=== PATIENT | female | born 1955 | race Caucasian/White ===

== ENCOUNTER 2017-07-26 10:54 | Inpatient (IN) | payer BC, OTHER ==
[2017-07-26 11:02] VITALS: BMI 24.4
[2017-07-26] MEDS ORDERED: Sodium Chloride 0.9% 1,000 ML IV STA ×2 (11:17→12:31)
--- NOTE | 2017-07-26 11:39 | ED PDOC ---
HPI: Abdomen Time Seen by Provider: 07/26/17 11:03 Chief Complaint (Nursing): Abdominal Pain Chief Complaint (Provider): Abdominal Pain History Per: Patient History/Exam Limitations: no limitations Onset/Duration Of Symptoms: Days (x2 weeks) Current Symptoms Are (Timing): Still Present Additional Complaint(s): 61 y/o female presents to the emergency department with a right upper quadrant abdominal pain and shortness of breath x2 weeks. Reports pain worsens with deep breathing and exertion. Patient visited the urgent care who advised her to come to the emergency department because she had a fast heart rate and elevated blood pressure. Also reports minimal non productive cough. Admits she quit smoking 6 weeks ago and had recent travel from [place] back and forth. Denies leg pain, calf pain, or swelling. Past Medical History Reviewed: Historical Data, Nursing Documentation, Vital Signs Vital Signs: Last Vital Signs Temp 97.6 F 07/28/17 01:00 Pulse 105 H 07/28/17 01:00 Resp 17 07/28/17 01:00 BP 100/68 07/28/17 01:00 Pulse Ox 97 07/28/17 01:00 - Medical History PMH: No Chronic Diseases - Surgical History Surgical History: No Surg Hx - Family History Family History: States: Unknown Family Hx - Home Medications Home Medications: Ambulatory Orders Medication Instructions Recorded Clindamycin [Cleocin] 300 mg PO TID 07/26/17 Cyclobenzaprine HCl 5 mg PO HS 07/26/17 [Cyclobenzaprine HCl] Naproxen [Naprosyn] 500 mg PO DAILY PRN 07/26/17 - Allergies Allergies/Adverse Reactions: Allergies Allergy/AdvReac Type Severity Reaction Status Date / Time No Known Allergies Allergy Verified 07/26/17 11:03 Review of Systems ROS Statement: Except As Marked, All Systems Reviewed And Found Negative Respiratory: Positive for: Cough (Non-productive), Shortness of Breath Gastrointestinal: Positive for: Abdominal Pain Musculoskeletal: Negative for: Leg Pain (or calf pain) Physical Exam - Reviewed Nursing Documentation Reviewed: Yes Vital Signs Reviewed: Yes - Physical Exam Appears: Positive for: Non-toxic, No Acute Distress Head Exam: Positive for: ATRAUMATIC, NORMAL INSPECTION, NORMOCEPHALIC Skin: Positive for: Normal Color, Warm, Dry Cardiovascular/Chest: Positive for: Chest Non Tender, Tachycardia (with regular rhythm). Negative for: Murmur Respiratory: Positive for: Normal Breath Sounds. Negative for: Accessory Muscle Use, Respiratory Distress Gastrointestinal/Abdominal: Positive for: Soft, Tenderness (RUQ region). Negative for: Normal Exam, Guarding, Rebound Extremity: Positive for: Normal ROM. Negative for: Pedal Edema, Calf Tenderness , Swelling Neurologic/Psych: Positive for: Alert, Oriented (x3) - Laboratory Results Result Diagrams: 07/27/17 06:00 07/27/17 15:00 - ECG O2 Sat by Pulse Oximetry: 99 (RA) Pulse Ox Interpretation: Normal Medical Decision Making Medical Decision Making: Time: 11:15 Initial Impression: Pneumonia, pulmonary embolism, cholecystitis and cholelithiasis Initial Plan: --VBG Shock Panel --EKG --ProBNP --CMP --Lipase --Troponin I --Urine DIP --CBC w/ diff --D Dimer --PTT & Prothrombin --Chest x-ray --Sodium Chloride 1L --Blood culture --Urinalysis --Abdomen Limited US --Reevaluation Time: 11:49 --Chest x-ray FINDINGS: LUNGS: No active pulmonary disease. PLEURA: No significant pleural effusion identified, no pneumothorax apparent. CARDIOVASCULAR: Normal. OSSEOUS STRUCTURES: No significant abnormalities. VISUALIZED UPPER ABDOMEN: Normal. OTHER FINDINGS: None. IMPRESSION: No active disease. Time: 12:46 --Angio Chest CT Time: 13:11 --Abdomen US FINDINGS: LIVER: Measures 21.7 cm in length. Heterogeneously increased echogenicity. This may reflect fatty infiltration or hepatocellular disease. The contour is lobulated. This raises the possibility of hepatic cirrhosis. There is no mass. There is no biliary dilatation. GALLBLADDER: Gallbladder is partially collapsed. There are no gallstones identified. There are multiple tiny polyps on both the dependent and anti dependent wall. Possible tumefactive sludge versus polyp measuring 8 mm in the gallbladder neck. . There is mild mural thickening of the gallbladder up to 5 mm but this is likely artifact resulting from the contracted status. No pericholecystic fluid. No sonographic Webster sign. COMMON BILE DUCT: Measures 3 mm. No stones. No dilatation. PANCREAS: Unremarkable as visualized. No mass. No ductal dilatation. RIGHT KIDNEY: Measures 10.4 cm in length. Normal echogenicity. No calculus, mass, or hydronephrosis. AORTA: No aneurysmal dilatation. IVC: Unremarkable. OTHER FINDINGS: None . IMPRESSION: Enlarged heterogeneous liver with the lobulated/nodular contour. Possible hepatic cirrhosis. No biliary dilatation. Gallbladder significant for mild mural thickening likely related to partially contracted status. Multiple small gallbladder polyps but no evidence of cholelithiasis. Low suspicion of cholecystitis. Time: 1356 --Angio Chest CT FINDINGS: PULMONARY ARTERIES: Unremarkable. No pulmonary embolism. AORTA: No acute findings. No thoracic aortic aneurysm. LUNGS: There is a masslike consolidation in the right upper lobe, pleural, measuring approximately 2.7 x 2.9 by 2.7 cm. Its margins are spiculated. This is suspicious for pulmonary neoplasm. There is no other pulmonary mass identified. There is centrilobular pulmonary emphysema. There is small focal patchy opacity in the left apex. This is nonspecific. PLEURAL SPACES: Trace right pleural effusion. No left pleural effusion. No pneumothorax. HEART: Unremarkable. No cardiomegaly. No significant pericardial effusion. LYMPH NODES: Mild right hilar lymphadenopathy. No mediastinal lymphadenopathy or left hilar lymphadenopathy. BONES, CHEST WALL: There are lytic lesions seen in the T10 and T12 vertebral bodies suspicious for metastasis. No other lytic or blastic osseous lesions are identified. OTHER FINDINGS: UnremarkableSections through the upper abdomen demonstrate an irregular lobulated low-density mass in the right lobe of the liver measuring approximately 2.4 cm in greatest dimension. . There is ill-defined confluent low -attenuation in much of the left hepatic lobe. This is nonspecific but the possibility of a neoplastic disorder must be considered. This could represent a hepatic cellular neoplasm. In the lateral segment of the left hepatic lobe there is a 1.7 cm ovoid low-attenuation lesion common nonspecific. Consider multiphasic pre and post contrast enhanced abdominal CT for further evaluation. IMPRESSION: No evidence of pulmonary embolism. Pleural-based mass/ consolidation in the right upper lobe measuring 2.9 cm in greatest dimension. Spiculated margins. Minimal right hilar lymphadenopathy. Ill-defined nonspecific patchy opacity in left apex. Centrilobular pulmonary emphysema. Trace right pleural effusion. Multiple hepatic masses with large ill-defined low-attenuation region in the left hepatic lobe common nonspecific. The possibility of a hepatocellular neoplasm must be considered. Evaluation with multiphasic contrast enhanced CT examination is suggested on a nonemergent basis. Several lytic lesions are seen in the T10 and T12 vertebrae suspicious for metastatic lesions. Scribe Attestation: Documented by Danielle Cazares, acting as a scribe for Tati Ureña MD. Provider Scribe Attestation: All medical record entries made by the Scribe were at my direction and personally dictated by me. I have reviewed the chart and agree that the record accurately reflects my personal performance of the history, physical exam, medical decision making, and the department course for this patient. I have also personally directed, reviewed, and agree with the discharge instructions and disposition. 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 This is because of the severity of symptoms shown, intensity of services needed, and/or the medical risk in this patient being treated as an outpatient. - POA Present On Arrival: None
[2017-07-26 11:48] LABS: VENOUS BLOOD GAS BASE EXCESS 1.1 mmol/L (0.0-2.0); VENOUS BLOOD GAS PCO2 37 mmHg (40-60); VENOUS BLOOD PH 7.44 (7.32-7.43)
--- NOTE | 2017-07-26 11:51 | RAD ---
HISTORY: SOB COMPARISON: No prior. FINDINGS: LUNGS: No active pulmonary disease. PLEURA: No significant pleural effusion identified, no pneumothorax apparent. CARDIOVASCULAR: Normal. OSSEOUS STRUCTURES: No significant abnormalities. VISUALIZED UPPER ABDOMEN: Normal. OTHER FINDINGS: None. IMPRESSION: No active disease.
[2017-07-26 11:54] LABS: BASO # 0.1 K/uL (0.0-0.2); BASO % 0.3 % (0.0-2.0); EOS % 0.1 % (0.0-4.0); LYMPH # 2.3 K/uL (1.0-4.3); LYMPH % 7.6 % (20.0-40.0); MEAN CELL VOLUME 86.2 fl (81.0-99.0); MEAN CORPUSCULAR HGB CONC 33.6 g/dL (33.0-37.0); MEAN PLATELET VOLUME 9.1 fl (7.2-11.7); MONO # 2.9 K/uL (0.0-0.8); MONO % 9.5 % (0.0-10.0); NEUT # 24.8 K/uL (1.8-7.0); NEUT % 82.5 % (50.0-75.0); NRBC % 0.3 % (0.0-0.0); PLATELET COUNT 511 K/uL (130-400); WHITE BLOOD COUNT 30.1 K/uL (4.8-10.8)
[2017-07-26 11:57] LABS: ALB/GLOB RATIO 0.7 (1.0-2.1); ALKALINE PHOSPHATASE 323 U/L (38-126); ALT/SGPT 119 U/L (9-52); AST/SGOT 244 U/L (14-36); BILIRUBIN,TOTAL 0.7 mg/dl (0.2-1.3); BLOOD UREA NITROGEN 11 mg/dl (7-17); CALCIUM 10.1 mg/dL (8.4-10.2); CARBON DIOXIDE 25 mmol/L (22-30); CHLORIDE 98 mmol/L (98-107); GFR AFRICAN-AMERICAN > 60; GLUCOSE,RANDOM 105 mg/dL (65-105); LIPASE 78 U/L (23-300); POTASSIUM 5.1 MMOL/L (3.6-5.0); SODIUM 138 mmol/l (132-148); TOTAL PROTEIN 7.5 G/DL (6.3-8.2)
[2017-07-26 12:37] LABS: PARTIAL THROMBOPLASTIN TIME 30.4 Seconds (25.6-37.1)
--- NOTE | 2017-07-26 13:13 | US ---
HISTORY: RUQ pain COMPARISON: None. TECHNIQUE: Sonographic evaluation of the right upper quadrant of the abdomen. FINDINGS: LIVER: Measures 21.7 cm in length. Heterogeneously increased echogenicity. This may reflect fatty infiltration or hepatocellular disease. The contour is lobulated. This raises the possibility of hepatic cirrhosis. There is no mass. There is no biliary dilatation. GALLBLADDER: Gallbladder is partially collapsed. There are no gallstones identified. There are multiple tiny polyps on both the dependent and anti dependent wall. Possible tumefactive sludge versus polyp measuring 8 mm in the gallbladder neck. . There is mild mural thickening of the gallbladder up to 5 mm but this is likely artifact resulting from the contracted status. No pericholecystic fluid. No sonographic Webster sign. COMMON BILE DUCT: Measures 3 mm. No stones. No dilatation. PANCREAS: Unremarkable as visualized. No mass. No ductal dilatation. RIGHT KIDNEY: Measures 10.4 cm in length. Normal echogenicity. No calculus, mass, or hydronephrosis. AORTA: No aneurysmal dilatation. IVC: Unremarkable. OTHER FINDINGS: None . IMPRESSION: Enlarged heterogeneous liver with the lobulated/nodular contour. Possible hepatic cirrhosis. No biliary dilatation. Gallbladder significant for mild mural thickening likely related to partially contracted status. Multiple small gallbladder polyps but no evidence of cholelithiasis. Low suspicion of cholecystitis.
[2017-07-26] MEDS ORDERED: Sodium Chloride 0.9% 50 ML IV ONE (13:24)
[2017-07-26] MEDS ORDERED: Iodixanol 320 mg/ml 50 ml Sol IV ONE (13:24)
[2017-07-26 13:51] LABS: RBC URINE 3 /hpf (0-3); URINE BILIRUBIN NEGATIVE (NEGATIVE); URINE BLOOD NEGATIVE (NEGATIVE); URINE COLOR YELLOW (YELLOW); URINE GLUCOSE (UA) NEG (Normal); URINE KETONE NEGATIVE (NEGATIVE); URINE LEUKOCYTE ESTERASE NEG Leu/uL (Negative); URINE PROTEIN 100 mg/dL (NEGATIVE); WBC URINE 2 /hpf (0-5)
[2017-07-26 13:55] LABS: BASOPHIL 1 % (0-2); NEUTROPHIL 74 % (42-75); TOTAL CELLS COUNTED 100
[2017-07-26 13:56] LABS: GIANT PLATELETS PRESENT; LARGE PLATELETS PRESENT
[2017-07-26] MEDS ORDERED: Azithromycin 500 MG in Sodium Chloride 0.9% 250 ML IV STA (13:57)
--- NOTE | 2017-07-26 13:58 | CT ---
PROCEDURE: CT Chest with contrast (Pulmonary Angiogram) HISTORY: SOB COMPARISON: None available. TECHNIQUE: Axial computed tomography images were obtained of the chest in the pulmonary arterial phase of enhancement. Coronal and sagittal reformatted images were created and reviewed. Intravenous contrast dose: 99 cc Visipaque 320 Radiation dose: Total exam DLP = 301.42 mGy-cm. This CT exam was performed using one or more of the following dose reduction techniques: Automated exposure control, adjustment of the mA and/or kV according to patient size, and/or use of iterative reconstruction technique. FINDINGS: PULMONARY ARTERIES: Unremarkable. No pulmonary embolism. AORTA: No acute findings. No thoracic aortic aneurysm. LUNGS: There is a masslike consolidation in the right upper lobe, pleural, measuring approximately 2.7 x 2.9 by 2.7 cm. Its margins are spiculated. This is suspicious for pulmonary neoplasm. There is no other pulmonary mass identified. There is centrilobular pulmonary emphysema. There is small focal patchy opacity in the left apex. This is nonspecific. PLEURAL SPACES: Trace right pleural effusion. No left pleural effusion. No pneumothorax. HEART: Unremarkable. No cardiomegaly. No significant pericardial effusion. LYMPH NODES: Mild right hilar lymphadenopathy. No mediastinal lymphadenopathy or left hilar lymphadenopathy. BONES, CHEST WALL: There are lytic lesions seen in the T10 and T12 vertebral bodies suspicious for metastasis. No other lytic or blastic osseous lesions are identified. OTHER FINDINGS: UnremarkableSections through the upper abdomen demonstrate an irregular lobulated low-density mass in the right lobe of the liver measuring approximately 2.4 cm in greatest dimension. . There is ill-defined confluent low-attenuation in much of the left hepatic lobe. This is nonspecific but the possibility of a neoplastic disorder must be considered. This could represent a hepatic cellular neoplasm. In the lateral segment of the left hepatic lobe there is a 1.7 cm ovoid low-attenuation lesion common nonspecific. Consider multiphasic pre and post contrast enhanced abdominal CT for further evaluation. IMPRESSION: No evidence of pulmonary embolism. Pleural-based mass/ consolidation in the right upper lobe measuring 2.9 cm in greatest dimension. Spiculated margins. Minimal right hilar lymphadenopathy. Ill-defined nonspecific patchy opacity in left apex. Centrilobular pulmonary emphysema. Trace right pleural effusion. Multiple hepatic masses with large ill-defined low-attenuation region in the left hepatic lobe common nonspecific. The possibility of a hepatocellular neoplasm must be considered. Evaluation with multiphasic contrast enhanced CT examination is suggested on a nonemergent basis. Several lytic lesions are seen in the T10 and T12 vertebrae suspicious for metastatic lesions.
[2017-07-26] MEDS ORDERED: cefTRIAXone (Rocephin) 1 gm Inj ONE (14:13)
--- NOTE | 2017-07-26 15:27 | CP.PCM.HP ---
History of Present Illness - History of Present Illness History of Present Illness: 61 y/o female whom reports an unremarkable PMHx presented to [facility] ED for evaluation of RUQ, SOB, and HTN. Pt was at an urgent care center getting checked up when she was sent her for further evaluation. Pt reports that she has been having a several week history of worsening RUQ pain, neck/back pain, fatigue/malaise, loss of appetite and unintentional weight loss. She denies any inciting event and reports she has been feeling "crumbier and crumbier so i went to get checked out". She denies any vomiting or diarrhea with her symptoms. She Denies any alleviated or exacerbating factors. She reports she has not been followed by PMD for most of her life because she felt like it hasnt been necessary. She denies any other associated symptoms. She denies any fever/chills, night sweats, swollen glands, CP/Palpitations, N/V/D/C, hematochezia, melena, urinary symptoms, changes in urine/stool color/calibre. PMD: Dr. Aranda ([facility]) just started seeing the pt PMHx: reports testing + for Hep B, said her VL was low, never had any other treatment Meds: denies any intermediate meds ALL: NKDA PHospHx: denies any history of blood/blood product transfusion PsurgHx: denies PObHx: LMP: several years ago SocialHx: denies any history illicit/IV drug abuse. Social ETOH consumption. Pt reports to >40 year hx of 1-2PPD, quit 6 weeks ago. pt lives in [place] with her whom is present at bedside. is POA and pt wishes to be a full code. FamilialHx: grandmother Hep B. ROS: 12 points reviewed, as per HPI, all other systems negative Present on Admission - Present on Admission Any Indicators Present on Admission: No Past Patient History - Infectious Disease Hx of Infectious Diseases: None - Past Social History Smoking Status: Former Smoker Alcohol: Social Drugs: Denies Home Situation {Lives}: With Family - PSYCHIATRIC Hx Substance Use: No Meds Allergies/Adverse Reactions: Allergies Allergy/AdvReac Type Severity Reaction Status Date / Time No Known Allergies Allergy Verified 07/26/17 11:03 Physical Exam - Constitutional Appears: Non-toxic, No Acute Distress - Head Exam Head Exam: ATRAUMATIC - Eye Exam Eye Exam: EOMI. absent: Conjunctival injection, Scleral icterus Pupil Exam: PERRL - ENT Exam ENT Exam: Mucous Membranes Moist - Neck Exam Neck exam: Positive for: Full Rom, Tenderness (midline tenderness). Negative for: Lymphadenopathy - Respiratory Exam Respiratory Exam: Clear to Auscultation Bilateral, NORMAL BREATHING PATTERN. absent: Accessory Muscle Use, Rales, Rhonchi, Wheezes - Cardiovascular Exam Cardiovascular Exam: REGULAR RHYTHM, RRR, +S1, +S2. absent: Tachycardia, Diastolic murmur, Gallop, JVD, Rubs, Systolic Murmur - GI/Abdominal Exam GI & Abdominal Exam: Normal Bowel Sounds, Soft. absent: Distended, Firm, Guarding, Rebound, Rigid, Tenderness - Extremities Exam Extremities exam: Positive for: normal inspection, pedal pulses present. Negative for: calf tenderness, pedal edema, tenderness - Back Exam Back exam: NORMAL INSPECTION - Neurological Exam Neurological exam: Alert, CN II-XII Intact, Normal Gait, Oriented x3, Reflexes Normal - Psychiatric Exam Psychiatric exam: Normal Affect, Normal Mood - Skin Skin Exam: Dry, Intact Results - Vital Signs Recent Vital Signs: Last Vital Signs Temp 97.8 F 07/26/17 11:01 Pulse 94 H 07/26/17 14:19 Resp 16 07/26/17 14:19 BP 111/79 07/26/17 14:19 Pulse Ox 96 07/26/17 14:19 - Labs Result Diagrams: 07/26/17 11:30 07/26/17 11:30 Labs: Laboratory Results - last 24 hr 07/26/17 07/26/17 07/26/17 11:30 11:30 11:30 WBC 30.1 H RBC 4.18 Hgb 12.1 Hct 36.0 MCV 86.2 MCH 29.0 MCHC 33.6 RDW 15.0 H Plt Count 511 H MPV 9.1 Neut % (Auto) 82.5 H Lymph % (Auto) 7.6 L Esmeralda % (Auto) 9.5 Eos % (Auto) 0.1 Baso % (Auto) 0.3 Neut # 24.8 H Lymph # 2.3 Esmeralda # 2.9 H Eos # 0.0 Baso # 0.1 Neutrophils % (Manual) 74 Band Neutrophils % 3 H Lymphocytes % (Manual) 12 L Monocytes % (Manual) 10 Basophils % (Manual) 1 Platelet Estimate Increased H Large Platelets Present Giant Platelets Present Poikilocytosis (manual Slight Anisocytosis (manual) Moderate Tear Drop Cells Slight PT 16.4 H INR 1.6 H APTT 30.4 D-Dimer, Quantitative 6866 H pO2 VBG pH VBG pCO2 VBG HCO3 VBG Total CO2 VBG O2 Sat (Calc) VBG Base Excess VBG Potassium Glucose Lactate FiO2 Crit Value Called To Crit Value Called By Crit Value Read Back Blood Gas Notified Time Sodium 138 Potassium 5.1 H Chloride 98 Carbon Dioxide 25 Anion Gap 20 BUN 11 Creatinine 0.6 L Est GFR ( Amer) > 60 Est GFR (Non-Af Amer) > 60 Random Glucose 105 Calcium 10.1 Total Bilirubin 0.7 AST 244 H ALT 119 H Alkaline Phosphatase 323 H Troponin I < 0.0120 NT-Pro-B Natriuret Pep 229 Total Protein 7.5 Albumin 3.2 L Globulin 4.3 H Albumin/Globulin Ratio 0.7 L Lipase 78 Venous Blood Potassium Urine Color Urine Clarity Urine pH Ur Specific [place] Urine Protein Urine Glucose (UA) Urine Ketones Urine Blood Urine Nitrate Urine Bilirubin Urine Urobilinogen Ur Leukocyte Esterase Urine RBC (Auto) Urine Microscopic WBC Ur Squamous Epith Cells 07/26/17 07/26/17 11:44 13:35 WBC RBC Hgb Hct MCV MCH MCHC RDW Plt Count MPV Neut % (Auto) Lymph % (Auto) Esmeralda % (Auto) Eos % (Auto) Baso % (Auto) Neut # Lymph # Esmeralda # Eos # Baso # Neutrophils % (Manual) Band Neutrophils % Lymphocytes % (Manual) Monocytes % (Manual) Basophils % (Manual) Platelet Estimate Large Platelets Giant Platelets Poikilocytosis (manual Anisocytosis (manual) Tear Drop Cells PT INR APTT D-Dimer, Quantitative pO2 29 L VBG pH 7.44 H VBG pCO2 37 L VBG HCO3 24.7 VBG Total CO2 26.2 VBG O2 Sat (Calc) 56.2 VBG Base Excess 1.1 VBG Potassium 5.1 Glucose 105 Lactate 3.0 H FiO2 21.0 Crit Value Called To Dayday barajas Crit Value Called By 23 Crit Value Read Back Y Blood Gas Notified Time 1145 Sodium 131.0 L Potassium Chloride 98.0 Carbon Dioxide Anion Gap BUN Creatinine Est GFR ( Amer) Est GFR (Non-Af Amer) Random Glucose Calcium Total Bilirubin AST ALT Alkaline Phosphatase Troponin I NT-Pro-B Natriuret Pep Total Protein Albumin Globulin Albumin/Globulin Ratio Lipase Venous Blood Potassium 5.1 Urine Color Yellow Urine Clarity Slighty-cloudy Urine pH 6.0 Ur Specific [place] 1.043 H Urine Protein 100 Urine Glucose (UA) Neg Urine Ketones Negative Urine Blood Negative Urine Nitrate Negative Urine Bilirubin Negative Urine Urobilinogen 2.0 H Ur Leukocyte Esterase Neg Urine RBC (Auto) 3 Urine Microscopic WBC 2 Ur Squamous Epith Cells 2 Assessment & Plan (1) Severe sepsis Status: Acute (2) Metastatic hepatocellular carcinoma to bone Status: Acute (3) Transaminasemia Status: Acute (4) Hyperkalemia Status: Acute (5) Prophylactic measure Status: Acute - Assessment and Plan (Free Text) Assessment: 61 y/o female with a PMHx remarkable for positive Hep B serology found to have HCC with bone mets admitted for severe sepsis secondary to metastatic HCC.
[2017-07-26] MEDS ORDERED: Azithromycin 500 MG IV IVPB ONE (16:11)
[2017-07-26] MEDS ORDERED: Naproxen 500 MG TAB PO PRN (21:01)
[2017-07-26] MEDS ORDERED: Lidocaine 2.5% OINTMENT TOP ONE (21:10)
[2017-07-26] MEDS ORDERED: Lidocaine 2% GEL TOP ONE (21:45)
[2017-07-27] MEDS: Piperacillin/Tazobact 3.375 GM in Sodium Chloride 0.9% 100 ML IVPB SCH ×3 (01:03→17:00)
[2017-07-27] MEDS: Sodium Chloride 0.45% 1,000 ML IV SCH ×3 (01:05→16:30)
[2017-07-27 07:08] LABS: HEMATOCRIT 32.4 % (34.0-47.0); MEAN CELL VOLUME 86.5 fl (81.0-99.0); MEAN CORPUSCULAR HEMOGLOBIN 28.4 pg (27.0-31.0); MEAN CORPUSCULAR HGB CONC 32.9 g/dL (33.0-37.0); RED CELL DISTRIBUTION WIDTH 15.1 % (11.5-14.5); WHITE BLOOD COUNT 27.2 K/uL (4.8-10.8)
[2017-07-27 07:17] LABS: ALB/GLOB RATIO 0.7 (1.0-2.1); ALKALINE PHOSPHATASE 277 U/L (38-126); ALT/SGPT 110 U/L (9-52); AST/SGOT 231 U/L (14-36); BILIRUBIN,TOTAL 0.9 mg/dl (0.2-1.3); BLOOD UREA NITROGEN 10 mg/dl (7-17); CALCIUM 9.2 mg/dL (8.4-10.2); CARBON DIOXIDE 23 mmol/L (22-30); CHLORIDE 102 mmol/L (98-107); CHOLESTEROL 67 mg/dL (0-199); GFR AFRICAN-AMERICAN > 60; GLUCOSE,RANDOM 89 mg/dL (65-105); POTASSIUM 5.7 MMOL/L (3.6-5.0); SODIUM 137 mmol/l (132-148); TOTAL PROTEIN 6.7 G/DL (6.3-8.2)
[2017-07-27 07:37] LABS: T4 11.1 ug/dl (5.5-11.0)
[2017-07-27] MEDS: Enoxaparin 40 mg Syringe SC SCH (09:00)
[2017-07-27] MEDS: Azithromycin 500 MG in Sodium Chloride 0.9% 250 ML IVPB SCH (09:00)
[2017-07-27] MEDS: Pantoprazole 40 mg EC Tab PO SCH (09:00)
--- NOTE | 2017-07-27 12:13 | CARD ---
APPROVED REPORT EKG Measurement Heart [id number] <Conclusion> Sinus tachycardia Biatrial enlargement Left axis deviation Abnormal ECG
[2017-07-27 15:41] LABS: BLOOD UREA NITROGEN 9 mg/dl (7-17); CALCIUM 8.8 mg/dL (8.4-10.2); CARBON DIOXIDE 21 mmol/L (22-30); CHLORIDE 102 mmol/L (98-107); GFR AFRICAN-AMERICAN > 60; GLUCOSE,RANDOM 114 mg/dL (65-105); POTASSIUM 4.5 MMOL/L (3.6-5.0); SODIUM 134 mmol/l (132-148)
[2017-07-27 16:50] LABS: CA 19-9 22.3 U/mL (0-37)
[2017-07-27 17:19] LABS: FOLATE 18.8 ng/mL
--- NOTE | 2017-07-27 18:18 | CP.PCM.PN ---
Subjective - Date & Time of Evaluation Date of Evaluation: 07/27/17 Time of Evaluation: 18:16 - Subjective Subjective: Patient continues to have a lot of pain in the posterior C spine area. She had a previous CT scan of the C spine but was notified by her MD if there were some lesions in there. Claims that she has difficulty with swallowing due to pain in the neck area. Objective - Vital Signs/Intake and Output Vital Signs (last 24 hours): Temp Pulse Resp BP Pulse Ox 99.2 F 96 H 20 110/74 95 07/27/17 16:12 07/27/17 16:12 07/27/17 16:12 07/27/17 16:12 07/27/17 16:12 - Medications Medications: Current Medications Cyclobenzaprine HCl (Flexeril) 5 mg PO HS [facility] Last Admin: 07/26/17 21:47 Dose: 5 mg Enoxaparin Sodium (Lovenox) 40 mg SC DAILY [facility] PRN Reason: Protocol Last Admin: 07/27/17 09:00 Dose: 40 mg Sodium Chloride (Sodium Chloride 0.45%) 1,000 mls @ 80 mls/hr IV .[id number] [facility] Last Admin: 07/27/17 16:30 Dose: 80 mls/hr Azithromycin 500 mg/ Sodium (Chloride) 250 mls @ 250 mls/hr IVPB DAILY [facility] Last Admin: 07/27/17 09:00 Dose: 250 mls/hr Ceftriaxone Sodium 1 gm/ (Sodium Chloride) 100 mls @ 100 mls/hr IVPB DAILY [facility] Last Admin: 07/27/17 09:00 Dose: 100 mls/hr Piperacillin Sod/Tazobactam (Sod 3.375 gm/ Sodium Chloride) 100 mls @ 100 mls/ hr IVPB Q8 [facility] Last Admin: 07/27/17 17:00 Dose: 100 mls/hr Vancomycin HCl 500 mg/ Sodium (Chloride) 100 mls @ 100 mls/hr IVPB Q12 [facility] Morphine Sulfate (Morphine) 2 mg IVP Q6 PRN PRN Reason: Pain, severe (8-10) Last Admin: 07/27/17 11:18 Dose: 2 mg Naproxen (Naproxen) 500 mg PO DAILY PRN PRN Reason: Pain, moderate (4-7) Last Admin: 07/27/17 13:24 Dose: 500 mg Ondansetron HCl (Zofran Inj) 4 mg IVP Q6 PRN PRN Reason: Nausea/Vomiting Pantoprazole Sodium (Protonix Ec Tab) 40 mg PO DAILY [facility] Last Admin: 07/27/17 09:00 Dose: 40 mg - Labs Labs: 07/27/17 06:00 07/27/17 15:00 PT 16.4 Seconds (9.8-13.1) H 07/26/17 11:30 INR 1.6 (0.9-1.2) H 07/26/17 11:30 APTT 30.4 Seconds (25.6-37.1) 07/26/17 11:30
[2017-07-27] MEDS ORDERED: Iohexol 240 (50 ml) PO STA (18:26)
[2017-07-27] MEDS ORDERED: HYDROmorphone 0.5 mg/0.5 ml ISec IVP PRN (18:32)
[2017-07-27] MEDS: Naproxen 500 MG TAB PO SCH (20:59)
--- NOTE | 2017-07-27 21:58 | CP.PCM.CON ---
History of Present Illness - History of Present Illness History of Present Illness: 61 year old female with a history of tobacco abuse, admitted with neck pain, found to have imaging concerning for metastatic malignancy. The patient has been having chronic neck pain which has increased in intensity since about May. She also does experience headaches intermittently. She notes her energy level and dimished and she has lost about 10 pound in six weeks. A CT scan of the chest revealed a spiculated RUL lung mass with hilar lymphadenopathy , liver lesions, and bone lesions concerning for metastatic disease. Past medical history: None Past surgical history: None Family history: Denies hematologic and oncologic problems Social history: 1ppd x 40 years, denies alcohol and illicit drug use. Allergies: NKA Review of systems: All remaining review of systems including HEENT, cardiovascular, respiratory, gastrointestinal, genitourinary, musculoskeletal, dermatologic, neurologic, and psychiatric are negative unless mentioned in the HPI. Past Patient History - Infectious Disease Hx of Infectious Diseases: None - Past Medical History & Family History Past Medical History?: Yes - Past Social History Smoking Status: Former Smoker - CARDIAC Hx Cardiac Disorders: No - PULMONARY Hx Respiratory Disorders: Yes Hx Bronchitis: Yes - NEUROLOGICAL Hx Neurological Disorder: No - HEENT Hx HEENT Problems: No - RENAL Hx Chronic Kidney Disease: No - ENDOCRINE/METABOLIC Hx Endocrine Disorders: No - HEMATOLOGICAL/ONCOLOGICAL Hx Blood Disorders: Yes Hx Hepatitis B: Yes (28 yrs ago) - INTEGUMENTARY Hx Dermatological Problems: No - MUSCULOSKELETAL/RHEUMATOLOGICAL Hx Musculoskeletal Disorders: No Hx Falls: No - GASTROINTESTINAL Hx Gastrointestinal Disorders: No - GENITOURINARY/GYNECOLOGICAL Hx Genitourinary Disorders: No - PSYCHIATRIC Hx Psychophysiologic Disorder: No Hx Substance Use: No - SURGICAL HISTORY Hx Surgeries: Yes Other/Comment: gum surgery 28 yrs ago - ANESTHESIA Hx Anesthesia: Yes Hx Anesthesia Reactions: No Hx Malignant Hyperthermia: No Has any member of the family had a problem w/ anesthesia?: No Meds Allergies/Adverse Reactions: Allergies Allergy/AdvReac Type Severity Reaction Status Date / Time No Known Allergies Allergy Verified 07/26/17 11:03 - Medications Medications: Current Medications Cyclobenzaprine HCl (Flexeril) 5 mg PO HS [facility] Last Admin: 07/27/17 21:02 Dose: 5 mg Docusate Sodium (Colace) 200 mg PO DAILY [facility] Enoxaparin Sodium (Lovenox) [address] [facility] PRN Reason: Protocol Last Admin: 07/27/17 09:00 Dose: 40 mg Hydromorphone HCl (Dilaudid) 1 mg IVP Q4 PRN PRN Reason: Pain, severe (8-10) Sodium Chloride (Sodium Chloride 0.45%) 1,000 mls @ 80 mls/hr IV .[id number] [facility] Last Admin: 07/27/17 16:30 Dose: 80 mls/hr Azithromycin 500 mg/ Sodium (Chloride) 250 mls @ 250 mls/hr IVPB DAILY [facility] Last Admin: 07/27/17 09:00 Dose: 250 mls/hr Ceftriaxone Sodium 1 gm/ (Sodium Chloride) 100 mls @ 100 mls/hr IVPB DAILY [facility] Last Admin: 07/27/17 09:00 Dose: 100 mls/hr Piperacillin Sod/Tazobactam (Sod 3.375 gm/ Sodium Chloride) 100 mls @ 100 mls/ hr IVPB Q8 [facility] Last Admin: 07/27/17 17:00 Dose: 100 mls/hr Vancomycin HCl 500 mg/ Sodium (Chloride) 100 mls @ 100 mls/hr IVPB Q12 [facility] Last Admin: 07/27/17 21:01 Dose: 100 mls/hr Morphine Sulfate (Morphine) 2 mg IVP Q6 PRN PRN Reason: Pain, severe (8-10) Last Admin: 07/27/17 11:18 Dose: 2 mg Naproxen (Naproxen) 500 mg PO DAILY PRN PRN Reason: Pain, moderate (4-7) Last Admin: 07/27/17 13:24 Dose: 500 mg Naproxen (Naproxen) [address] [facility] Last Admin: 07/27/17 20:59 Dose: 500 mg Ondansetron HCl (Zofran Inj) 4 mg IVP Q6 PRN PRN Reason: Nausea/Vomiting Pantoprazole Sodium (Protonix Ec Tab) [address] [facility] Last Admin: 07/27/17 09:00 Dose: 40 mg Sennosides (Senokot Tab) 17.[address] [facility] Last Admin: 07/27/17 21:09 Dose: 17.2 mg Physical Exam - Head Exam Head Exam: ATRAUMATIC - Eye Exam Eye Exam: Normal appearance - ENT Exam ENT Exam: Mucous Membranes Dry - Respiratory Exam Respiratory Exam: NORMAL BREATHING PATTERN - Cardiovascular Exam Cardiovascular Exam: +S1, +S2 - GI/Abdominal Exam GI & Abdominal Exam: Normal Bowel Sounds - Extremities Exam Extremities exam: Positive for: normal inspection - Neurological Exam Neurological exam: Oriented x3 - Psychiatric Exam Psychiatric exam: Normal Affect, Normal Mood - Skin Skin Exam: Warm Results - Vital Signs Recent Vital Signs: Last Vital Signs Temp 97.8 F 07/27/17 20:22 Pulse 97 H 07/27/17 20:22 Resp 20 07/27/17 20:22 BP 93/64 L 07/27/17 20:22 Pulse Ox 96 07/27/17 20:22 - Labs Result Diagrams: 07/27/17 06:00 07/27/17 15:00 Labs: Laboratory Results - last 24 hr 07/27/17 07/27/17 07/27/17 06:00 06:00 06:00 WBC 27.2 H RBC 3.74 L Hgb 10.6 L Hct 32.4 L MCV 86.5 MCH 28.4 MCHC 32.9 L RDW 15.1 H Plt Count 441 H ESR 111 H Sodium 137 Potassium 5.7 H Chloride 102 Carbon Dioxide 23 Anion Gap 18 BUN 10 Creatinine 0.7 Est GFR ( Amer) > 60 Est GFR (Non-Af Amer) > 60 Random Glucose 89 Calcium 9.2 Ferritin 73802.0 Total Bilirubin 0.9 AST 231 H ALT 110 H Alkaline Phosphatase 277 H Total Protein 6.7 Albumin 2.7 L Globulin 4.0 H Albumin/Globulin Ratio 0.7 L Triglycerides 71 Cholesterol 67 LDL Cholesterol Direct < 30 HDL Cholesterol 12 L Carcinoembryonic Ag 1660.0 H CA 19-9 Antigen 22.3 CA 125 Antigen 211 H Vitamin B12 > 1000 H Folate 18.8 Thyroxine (T4) 11.1 H TSH 3rd Generation 2.20 07/27/17 15:00 WBC RBC Hgb Hct MCV MCH MCHC RDW Plt Count ESR Sodium 134 Potassium 4.5 Chloride 102 Carbon Dioxide 21 L Anion Gap 16 BUN 9 Creatinine 0.6 L Est GFR ( Amer) > 60 Est GFR (Non-Af Amer) > 60 Random Glucose 114 H Calcium 8.8 Ferritin Total Bilirubin AST ALT Alkaline Phosphatase Total Protein Albumin Globulin Albumin/Globulin Ratio Triglycerides Cholesterol LDL Cholesterol Direct HDL Cholesterol Carcinoembryonic Ag CA 19-9 Antigen CA 125 Antigen Vitamin B12 Folate Thyroxine (T4) TSH 3rd Generation Assessment & Plan (1) Metastatic disease Assessment and Plan: likely malignancy based on imaging and given smoking history, rule out lung cancer elevated CEA and CA 125 noted; pt has never had a mammogram and colonoscopy agree with MRI of the neck to evaluate neck pain; ?metastasis will add MRI brain to evaluate for brain mets given headaches will need a biopsy of the most accessible lesion and will place a consult for an IR biopsy of the most accessible lesion ?liver lesion. I had an at length discussion with the patient and her . They wish to be transferred to [facility] after the biopsy for further care. Status: Acute (2) Leukocytosis Assessment and Plan: on antibiotics may be reactive to malignancy Thank you for this interesting consult. Status: Acute
[2017-07-28] MEDS: Piperacillin/Tazobact 3.375 GM in Sodium Chloride 0.9% 100 ML IVPB SCH ×3 (01:10→17:31)
[2017-07-28] MEDS: Sodium Chloride 0.45% 1,000 ML IV SCH ×2 (05:45→10:12)
[2017-07-28] MEDS ORDERED: Pantoprazole 40 mg EC Tab PO SCH (09:00)
[2017-07-28] MEDS: Enoxaparin 40 mg Syringe SC SCH (09:02)
[2017-07-28] MEDS ORDERED: Phytonadione 10 mg/ml Inj (Adult) SC ONE (09:32)
[2017-07-28] MEDS ORDERED: Phytonadione 10 MG in Sodium Chloride 0.9% 50 ML IV ONE (11:30)
[2017-07-28] MEDS ORDERED: Iohexol 300 100 ML IJ ONE (13:17)
[2017-07-28] MEDS ORDERED: Sodium Chloride 0.9% 50 ML IV ONE (13:17)
[2017-07-28] MEDS: Naproxen 500 MG TAB PO SCH ×2 (14:07→21:54)
[2017-07-28] MEDS: Pantoprazole 40 mg EC Tab PO SCH (14:13)
[2017-07-28] MEDS: Azithromycin 500 MG in Sodium Chloride 0.9% 250 ML IVPB SCH (14:41)
--- NOTE | 2017-07-28 15:11 | CT ---
PROCEDURE: CT Abdomen and Pelvis with and without intravenous contrast HISTORY: metastatic liver disease COMPARISON: None. TECHNIQUE: Axial images of the abdomen were obtained in the pre contrast, portal venous phases of enhancement. Coronal and sagittal reformats were generated. Contrast dose: 90 milliliters omni 300 Radiation dose: Total exam DLP = 1136 mGy-cm. This CT exam was performed using one or more of the following dose reduction techniques: Automated exposure control, adjustment of the mA and/or kV according to patient size, and/or use of iterative reconstruction technique. FINDINGS: LOWER THORAX: There is evidence of a new right pleural effusion with mild compressive atelectasis posteriorly at the right lung base. Mild interstitial changes are seen in the left lung without effusion. Visualized distal esophagus is unremarkable. A minor amount of pericardial fluid posteriorly is not excluded. LIVER: There is moderate diffuse heterogeneity of the density of the liver with areas of non geographic mosaic decreased density and areas of peripheral increased density as well as nodularity. There also moderate areas of diffuse decreased density involving a large portion of the left lobe of the liver and portions of the superior aspect of the right lobe of the liver. Liver is moderately enlarged, especially within the left lobe region. Some other scattered areas of low-density cysts are seen in the right lobe of the liver posteriorly. Some additional smaller cysts are seen in the right lobe inferiorly. There is displacement of the hepatic vasculature in the areas of hypodensity. In the far left left lobe of the liver there is also some smaller hypodensity seen. Imaging findings suggest underlying cirrhosis with and primary or metastatic liver disease. Leading differential diagnosis would include hepatocellular carcinoma. No definite intrahepatic ductal dilatation is seen. There is evidence of low density thrombus involving left portal vein, best on series 6 image 50 and coronal images 42 through 50. Main portal vein appears patent. Right portal vein is patent. GALLBLADDER AND BILE DUCTS: There appears to be gallbladder sludge and some mild pericholecystic fluid, nonspecific and no definite gallbladder wall thickening is seen. PANCREAS: Unremarkable. No gross lesion or ductal dilatation. SPLEEN: Unremarkable. ADRENALS: Unremarkable. No mass. KIDNEYS AND URETERS: Unremarkable. No hydronephrosis. No solid mass. VASCULATURE: Aorta is normal in size. Celiac and SMA vessels appear grossly patent. IVC is patent although mildly flattened by the enlarged liver. BOWEL: No small bowel dilatation or small bowel obstruction is seen. No pericolonic inflammatory changes or bowel wall thickening is noted. APPENDIX: Normal appendix. PERITONEUM: There is perihepatic ascites identified. In addition there is some mild amounts of omental thickening seen anterior to the liver and possibly within the anterior abdomen. Minor amount of ascites is also seen in the right pericolic gutter posterior to the right colon. Minor pelvic ascites is also seen. Mild ascites is also seen in the elisabeth hepatis region. LYMPH NODES: A few small scattered gastrohepatic ligament lymph nodes are appreciated. There may also be a few small portal venous lymph nodes identified. BLADDER: Unremarkable. REPRODUCTIVE: Unremarkable. BONES: There is a small subtle area of hypodensity seen in the anterior superior endplate of L3. There may also be a few other smaller scattered areas of hypodensity in the superior endplates of the lower thoracic vertebral bodies. No lesion is appreciated within the pelvis. No compression fracture is noted. OTHER FINDINGS: Visualized stomach is unremarkable. Decompressed. A portion of the enlarged left lobe of the liver abuts the stomach with a loss of fat plane. Invasion of the outer portion of the stomach could not be excluded. IMPRESSION: Abnormal appearance of the liver with enlargement, nodularity, and low-density masses appreciated in the left lobe of the liver with some other scattered smaller low-density lesions or cysts seen. Imaging findings suggest hepatocellular carcinoma within underlying cirrhotic liver. No intrahepatic ductal dilatation is seen. There is however low-density thrombus suspected in portions of the left portal vein. Ascites is noted. Right pleural effusion and compressive atelectasis at the right lung base. There is also some mild possible omentum. Portions of the left lobe of the liver also abut the stomach with loss of normal fat plane. Invasion could not be excluded. A few tiny scattered hypodensities in the spine may reflect subchondral cyst formation. Metastatic disease is not excluded.
[2017-07-28] MEDS: Oxycodone/Acetaminophen 5/325 mg Tab PO PRN (22:57)
[2017-07-28] MEDS ORDERED: Sodium Chloride 0.45% 1,000 ML IV SCH (23:00)
--- NOTE | 2017-07-28 23:10 | CP.PCM.PN ---
Subjective - Date & Time of Evaluation Date of Evaluation: 07/28/17 Time of Evaluation: 09:30 - Subjective Subjective: Patient remains stable Has no chest pain or SOB. For CT scan of the abdomen Objective - Vital Signs/Intake and Output Vital Signs (last 24 hours): Temp Pulse Resp BP Pulse Ox 97.6 F 100 H 18 99/67 L 93 L 07/28/17 20:17 07/28/17 21:00 07/28/17 20:17 07/28/17 20:17 07/28/17 20:17 Intake and Output: 07/28/17 07/29/17 18:59 06:59 Intake Total 1560 Output Total 2 Balance 1558 - Medications Medications: Current Medications Cyclobenzaprine HCl (Flexeril) 5 mg PO HS [facility] Last Admin: 07/28/17 21:53 Dose: 5 mg Docusate Sodium (Colace) 200 mg PO DAILY [facility] Last Admin: 07/28/17 14:11 Dose: Not Given Hydromorphone HCl (Dilaudid) 1 mg IVP Q4 PRN PRN Reason: Pain, severe (8-10) Sodium Chloride (Sodium Chloride 0.45%) 1,000 mls @ 80 mls/hr IV .[id number] [facility] Last Admin: 07/28/17 10:12 Dose: 80 mls/hr Azithromycin 500 mg/ Sodium (Chloride) 250 mls @ 250 mls/hr IVPB DAILY [facility] Last Admin: 07/28/17 14:41 Dose: 250 mls/hr Ceftriaxone Sodium 1 gm/ (Sodium Chloride) 100 mls @ 100 mls/hr IVPB DAILY [facility] Last Admin: 07/28/17 09:06 Dose: 100 mls/hr Piperacillin Sod/Tazobactam (Sod 3.375 gm/ Sodium Chloride) 100 mls @ 100 mls/ hr IVPB Q8 [facility] Last Admin: 07/28/17 17:31 Dose: 100 mls/hr Vancomycin HCl 500 mg/ Sodium (Chloride) 100 mls @ 100 mls/hr IVPB Q12 [facility] Last Admin: 07/28/17 21:55 Dose: 100 mls/hr Sodium Chloride (Sodium Chloride 0.45%) 1,000 mls @ 80 mls/hr IV .[id number] [facility] Stop: 07/29/17 22:53 Naproxen (Naproxen) 500 mg PO DAILY PRN PRN Reason: Pain, moderate (4-7) Last Admin: 07/27/17 13:24 Dose: 500 mg Naproxen (Naproxen) 500 mg PO Q12 [facility] Last Admin: 07/28/17 21:54 Dose: 500 mg Ondansetron HCl (Zofran Inj) 4 mg IVP Q6 PRN PRN Reason: Nausea/Vomiting Oxycodone/Acetaminophen (Percocet 5/325 Mg Tab) 1 tab PO Q4 PRN PRN Reason: Pain, moderate (4-7) Stop: 07/31/17 22:43 Last Admin: 07/28/17 22:57 Dose: 1 tab Pantoprazole Sodium (Protonix Ec Tab) 40 mg PO DAILY [facility] Last Admin: 07/28/17 14:13 Dose: 40 mg Sennosides (Senokot Tab) 17.2 mg PO HS [facility] Last Admin: 07/28/17 21:55 Dose: Not Given - Labs Labs: 07/27/17 06:00 07/27/17 15:00 PT 16.4 Seconds (9.8-13.1) H 07/26/17 11:30 INR 1.6 (0.9-1.2) H 07/26/17 11:30 APTT 30.4 Seconds (25.6-37.1) 07/26/17 11:30
[2017-07-29] MEDS: Piperacillin/Tazobact 3.375 GM in Sodium Chloride 0.9% 100 ML IVPB SCH ×2 (00:09→16:38)
--- NOTE | 2017-07-29 04:01 | CON ---
INFECTIOUS DISEASE CONSULTATION DATE: HISTORY OF PRESENT ILLNESS: The patient is a 61-year-old female, who came to [facility] ED for evaluation of right upper quadrant pain, shortness of breath and hypertension. The patient was at a nursing care center getting checked when she was sent for further evaluation. Apparently, she had had a 4-week history of worsening right upper quadrant pain, neck pain, fatigue, malaise, loss of appetite, and unintentional weight loss. Discussed this case with Dr. Cardozo, the attending physician, but she currently has severe pain. She denies any history of fever, chills, night sweats, or any cardiac symptoms. Apparently, she was just being seen at [facility] by Dr. Aranda. SOCIAL HISTORY: No history of drug use, just social ethanol and greater than a 40-year history of two-pack per day cigarette smoking, but she quit six years ago. PHYSICAL EXAMINATION: HEENT: Within normal limits. NECK: Supple, but she has tenderness in the midline and there is no lymphadenopathy. LUNGS: Basically are clear. CARDIOVASCULAR SYSTEM: Regular sinus rhythm. ABDOMEN: There is right upper quadrant tenderness. EXTREMITIES: No CCE. LABORATORY DATA: Labs are quite significant. She has AST of 244, ALT 119, alk phos 323. CEA is 1660, CA-125 antigen is 211 and her CA 19-9 antigen is 22.3, which is apparently normal. White count was 30.1, came down to 27.2; platelets 511 and then 411, she has a shift to left. IMAGING STUDIES: Chest CT: There is a pleural based mass consolidation in the right upper lobe measuring 2.9 cm in its greatest dimension, spiculated margins, minimal right hilar lymphadenopathy. There is an ill-defined nonspecific patchy opacity in the left apex. There is a right pleural effusion. There are multiple hepatic masses with large ill-defined low attenuated region in the left hepatic lobe, possibility of hepatocellular neoplasm must be considered. There are several lytic lesions seen in T10 and T12 vertebrae, suspicious for metastatic lesions. IMPRESSION AND PLAN: Leukocytosis, possibly may be a combination of infection and malignancy. At the present time, we will put her on broad-spectrum treatment with IV Zosyn and IV vancomycin. Thank you. We will follow. Charanjit Storm MD [facility] # [id number]
[2017-07-29 05:36] LABS: PARTIAL THROMBOPLASTIN TIME 32.8 Seconds (25.6-37.1)
[2017-07-29] MEDS: Oxycodone/Acetaminophen 5/325 mg Tab PO PRN (08:20)
[2017-07-29] MEDS: Naproxen 500 MG TAB PO SCH ×3 (09:22→21:21)
[2017-07-29] MEDS: Azithromycin 500 MG in Sodium Chloride 0.9% 250 ML IVPB SCH (09:29)
--- NOTE | 2017-07-29 09:50 | CP.PCM.PN ---
Subjective - Date & Time of Evaluation Date of Evaluation: 07/29/17 Time of Evaluation: 09:40 - Subjective Subjective: Neck and abdominal pain controlled with pain meds Awaiting MRI of neck/head Objective - Vital Signs/Intake and Output Vital Signs (last 24 hours): Temp Pulse Resp BP Pulse Ox 97.7 F 98 H 18 100/67 96 07/29/17 08:00 07/29/17 08:00 07/29/17 08:00 07/29/17 08:00 07/29/17 08:00 - Medications Medications: Current Medications Cyclobenzaprine HCl (Flexeril) 5 mg PO HS [facility] Last Admin: 07/28/17 21:53 Dose: 5 mg Docusate Sodium (Colace) 200 mg PO DAILY [facility] Last Admin: 07/29/17 09:19 Dose: Not Given Hydromorphone HCl (Dilaudid) 1 mg IVP Q4 PRN PRN Reason: Pain, severe (8-10) Last Admin: 07/29/17 00:58 Dose: 1 mg Sodium Chloride (Sodium Chloride 0.45%) 1,000 mls @ 80 mls/hr IV .[id number] [facility] Last Admin: 07/28/17 10:12 Dose: 80 mls/hr Azithromycin 500 mg/ Sodium (Chloride) 250 mls @ 250 mls/hr IVPB DAILY [facility] Last Admin: 07/29/17 09:29 Dose: 250 mls/hr Ceftriaxone Sodium 1 gm/ (Sodium Chloride) 100 mls @ 100 mls/hr IVPB DAILY [facility] Last Admin: 07/29/17 09:23 Dose: 100 mls/hr Piperacillin Sod/Tazobactam (Sod 3.375 gm/ Sodium Chloride) 100 mls @ 100 mls/ hr IVPB Q8 [facility] Last Admin: 07/29/17 00:09 Dose: 100 mls/hr Vancomycin HCl 500 mg/ Sodium (Chloride) 100 mls @ 100 mls/hr IVPB Q12 [facility] Last Admin: 07/29/17 09:28 Dose: 100 mls/hr Sodium Chloride (Sodium Chloride 0.45%) 1,000 mls @ 80 mls/hr IV .[id number] [facility] Stop: 07/29/17 22:53 Naproxen (Naproxen) 500 mg PO DAILY PRN PRN Reason: Pain, moderate (4-7) Last Admin: 07/27/17 13:24 Dose: 500 mg Naproxen (Naproxen) 500 mg PO Q12 [facility] Last Admin: 07/29/17 09:22 Dose: Not Given Ondansetron HCl (Zofran Inj) 4 mg IVP Q6 PRN PRN Reason: Nausea/Vomiting Oxycodone/Acetaminophen (Percocet 5/325 Mg Tab) 1 tab PO Q4 PRN PRN Reason: Pain, moderate (4-7) Stop: 07/31/17 22:43 Last Admin: 07/29/17 08:20 Dose: 1 tab Pantoprazole Sodium (Protonix Ec Tab) 40 mg PO DAILY [facility] Last Admin: 07/28/17 14:13 Dose: 40 mg Sennosides (Senokot Tab) 17.2 mg PO HS [facility] Last Admin: 07/28/17 21:55 Dose: Not Given - Labs Labs: 07/27/17 06:00 07/27/17 15:00 PT 15.8 Seconds (9.8-13.1) H 07/29/17 04:15 INR 1.5 (0.9-1.2) H 07/29/17 04:15 APTT 32.8 Seconds (25.6-37.1) 07/29/17 04:15 - Head Exam Head Exam: ATRAUMATIC - Eye Exam Eye Exam: Normal appearance - ENT Exam ENT Exam: Mucous Membranes Dry - Respiratory Exam Respiratory Exam: NORMAL BREATHING PATTERN - Cardiovascular Exam Cardiovascular Exam: +S1, +S2 - GI/Abdominal Exam GI & Abdominal Exam: Normal Bowel Sounds - Extremities Exam Extremities Exam: Normal Inspection Assessment and Plan (1) Metastatic disease Assessment & Plan: for liver biopsy imaging suggestive of cirrhosis and pt with hep B ?HCC ?lung CA ?2 primary tumors will add AFP and CA 19-9 for MRI neck and brain liver lesion biopsy by IR; coagulopathy improved with vit k Status: Acute (2) Leukocytosis Assessment & Plan: on antibiotics may be reactive to malignancy Status: Acute
[2017-07-29] MEDS: Pantoprazole 40 mg EC Tab PO SCH (11:31)
--- NOTE | 2017-07-29 12:44 | CP.PCM.PCO ---
Assessment & Plan - Assessment and Plan (Free Text) Assessment: As per patient and her spouse who wishes to follow up with [facility] upon dc from [facility] This staff writer called [phone] appointment line at [place] and spoke to Paulino at According to Paulino, there is no hospital to hospital transfer to [facility], patient will be contacted by JONATHAN once discharged from [facility] and an outpatient consultation date will be provided. [employer] provided necessary patient information to JONATHAN, all documents will be faxed to [phone]. An oncologist will be assigned once pt. records are reviewed and f/u outpatient. Above discussed with patient and her spouse Contreras.
[2017-07-30] MEDS: Piperacillin/Tazobact 3.375 GM in Sodium Chloride 0.9% 100 ML IVPB SCH ×4 (01:55→17:02)
[2017-07-30] MEDS ORDERED: Lidocaine 2% GEL TOP ONE (05:04)
[2017-07-30] MEDS ORDERED: Lidocaine 2% Jelly (5 ml) TOP ONE (06:30)
[2017-07-30 06:41] LABS: HEMATOCRIT 32.7 % (34.0-47.0); MEAN CELL VOLUME 87.3 fl (81.0-99.0); MEAN CORPUSCULAR HEMOGLOBIN 27.9 pg (27.0-31.0); MEAN CORPUSCULAR HGB CONC 31.9 g/dL (33.0-37.0); RED CELL DISTRIBUTION WIDTH 15.5 % (11.5-14.5); WHITE BLOOD COUNT 34.7 K/uL (4.8-10.8)
[2017-07-30 06:49] LABS: ALB/GLOB RATIO 0.7 (1.0-2.1); ALKALINE PHOSPHATASE 348 U/L (38-126); ALT/SGPT 121 U/L (9-52); AST/SGOT 291 U/L (14-36); BLOOD UREA NITROGEN 14 mg/dl (7-17); CALCIUM 8.8 mg/dL (8.4-10.2); CARBON DIOXIDE 22 mmol/L (22-30); CHLORIDE 105 mmol/L (98-107); GFR AFRICAN-AMERICAN > 60; GLUCOSE,RANDOM 78 mg/dL (65-105); POTASSIUM 4.4 MMOL/L (3.6-5.0); SODIUM 138 mmol/l (132-148); TOTAL PROTEIN 5.9 G/DL (6.3-8.2)
[2017-07-30] MEDS: Pantoprazole 40 mg EC Tab PO SCH (08:24)
[2017-07-30] MEDS: Naproxen 500 MG TAB PO SCH ×2 (08:24→21:21)
[2017-07-30] MEDS: Sodium Chloride 0.45% 1,000 ML IV SCH ×3 (08:27→21:31)
--- NOTE | 2017-07-30 10:00 | CP.PCM.PN ---
Subjective - Date & Time of Evaluation Date of Evaluation: 07/29/17 Time of Evaluation: 10:00 - Subjective Subjective: Patient remains stable . Still with neck pain and RUQ pain. Objective - Vital Signs/Intake and Output Vital Signs (last 24 hours): Temp Pulse Resp BP Pulse Ox 97.8 F 120 H 18 107/76 95 07/30/17 08:00 07/30/17 08:00 07/30/17 08:00 07/30/17 08:00 07/30/17 08:00 - Medications Medications: Current Medications Cyclobenzaprine HCl (Flexeril) 5 mg PO HS [facility] Last Admin: 07/29/17 21:20 Dose: 5 mg Docusate Sodium (Colace) 200 mg PO DAILY [facility] Last Admin: 07/30/17 08:23 Dose: Not Given Hydromorphone HCl (Dilaudid) 1 mg IVP Q4 PRN PRN Reason: Pain, severe (8-10) Last Admin: 07/30/17 08:07 Dose: 1 mg Sodium Chloride (Sodium Chloride 0.45%) 1,000 mls @ 80 mls/hr IV .[id number] [facility] Last Admin: 07/30/17 08:27 Dose: Not Given Azithromycin 500 mg/ Sodium (Chloride) 250 mls @ 250 mls/hr IVPB DAILY [facility] Last Admin: 07/29/17 09:29 Dose: 250 mls/hr Ceftriaxone Sodium 1 gm/ (Sodium Chloride) 100 mls @ 100 mls/hr IVPB DAILY [facility] Last Admin: 07/29/17 09:23 Dose: 100 mls/hr Piperacillin Sod/Tazobactam (Sod 3.375 gm/ Sodium Chloride) 100 mls @ 100 mls/ hr IVPB Q8 [facility] Last Admin: 07/30/17 08:35 Dose: 100 mls/hr Vancomycin HCl 500 mg/ Sodium (Chloride) 100 mls @ 100 mls/hr IVPB Q12 [facility] Last Admin: 07/30/17 08:24 Dose: 100 mls/hr Naproxen (Naproxen) 500 mg PO DAILY PRN PRN Reason: Pain, moderate (4-7) Last Admin: 07/27/17 13:24 Dose: 500 mg Naproxen (Naproxen) 500 mg PO Q12 [facility] Last Admin: 07/30/17 08:24 Dose: Not Given Ondansetron HCl (Zofran Inj) 4 mg IVP Q6 PRN PRN Reason: Nausea/Vomiting Oxycodone/Acetaminophen (Percocet 5/325 Mg Tab) 1 tab PO Q4 PRN PRN Reason: Pain, moderate (4-7) Stop: 07/31/17 22:43 Last Admin: 07/29/17 08:20 Dose: 1 tab Pantoprazole Sodium (Protonix Ec Tab) 40 mg PO DAILY [facility] Last Admin: 07/30/17 08:24 Dose: Not Given Sennosides (Senokot Tab) 17.2 mg PO HS [facility] Last Admin: 07/29/17 21:23 Dose: Not Given - Labs Labs: 07/30/17 06:25 07/30/17 06:25 PT 15.8 Seconds (9.8-13.1) H 07/29/17 04:15 INR 1.5 (0.9-1.2) H 07/29/17 04:15 APTT 32.8 Seconds (25.6-37.1) 07/29/17 04:15
--- NOTE | 2017-07-30 10:05 | CP.PCM.PN ---
Subjective - Date & Time of Evaluation Date of Evaluation: 07/30/17 Time of Evaluation: 09:05 - Subjective Subjective: Neck and abdominal pain controlled with pain meds Awaiting MRI neck/brain Objective - Vital Signs/Intake and Output Vital Signs (last 24 hours): Temp Pulse Resp BP Pulse Ox 97.8 F 120 H 18 107/76 95 07/30/17 08:00 07/30/17 08:00 07/30/17 08:00 07/30/17 08:00 07/30/17 08:00 - Medications Medications: Current Medications Cyclobenzaprine HCl (Flexeril) 5 mg PO HS [facility] Last Admin: 07/29/17 21:20 Dose: 5 mg Docusate Sodium (Colace) 200 mg PO DAILY [facility] Last Admin: 07/30/17 08:23 Dose: Not Given Hydromorphone HCl (Dilaudid) 1 mg IVP Q4 PRN PRN Reason: Pain, severe (8-10) Last Admin: 07/30/17 08:07 Dose: 1 mg Sodium Chloride (Sodium Chloride 0.45%) 1,000 mls @ 80 mls/hr IV .[id number] [facility] Last Admin: 07/30/17 08:27 Dose: Not Given Azithromycin 500 mg/ Sodium (Chloride) 250 mls @ 250 mls/hr IVPB DAILY [facility] Last Admin: 07/29/17 09:29 Dose: 250 mls/hr Ceftriaxone Sodium 1 gm/ (Sodium Chloride) 100 mls @ 100 mls/hr IVPB DAILY [facility] Last Admin: 07/29/17 09:23 Dose: 100 mls/hr Piperacillin Sod/Tazobactam (Sod 3.375 gm/ Sodium Chloride) 100 mls @ 100 mls/ hr IVPB Q8 [facility] Last Admin: 07/30/17 08:35 Dose: 100 mls/hr Vancomycin HCl 500 mg/ Sodium (Chloride) 100 mls @ 100 mls/hr IVPB Q12 [facility] Last Admin: 07/30/17 08:24 Dose: 100 mls/hr Naproxen (Naproxen) 500 mg PO DAILY PRN PRN Reason: Pain, moderate (4-7) Last Admin: 07/27/17 13:24 Dose: 500 mg Naproxen (Naproxen) 500 mg PO Q12 [facility] Last Admin: 07/30/17 08:24 Dose: Not Given Ondansetron HCl (Zofran Inj) 4 mg IVP Q6 PRN PRN Reason: Nausea/Vomiting Oxycodone/Acetaminophen (Percocet 5/325 Mg Tab) 1 tab PO Q4 PRN PRN Reason: Pain, moderate (4-7) Stop: 07/31/17 22:43 Last Admin: 07/29/17 08:20 Dose: 1 tab Pantoprazole Sodium (Protonix Ec Tab) 40 mg PO DAILY [facility] Last Admin: 07/30/17 08:24 Dose: Not Given Sennosides (Senokot Tab) 17.2 mg PO HS [facility] Last Admin: 07/29/17 21:23 Dose: Not Given - Labs Labs: 07/30/17 06:25 07/30/17 06:25 PT 15.8 Seconds (9.8-13.1) H 07/29/17 04:15 INR 1.5 (0.9-1.2) H 07/29/17 04:15 APTT 32.8 Seconds (25.6-37.1) 07/29/17 04:15 - Head Exam Head Exam: ATRAUMATIC - Eye Exam Eye Exam: Normal appearance - ENT Exam ENT Exam: Mucous Membranes Dry - Respiratory Exam Respiratory Exam: NORMAL BREATHING PATTERN - Cardiovascular Exam Cardiovascular Exam: +S1, +S2 - GI/Abdominal Exam GI & Abdominal Exam: Normal Bowel Sounds - Extremities Exam Extremities Exam: Normal Inspection Assessment and Plan (1) Metastatic disease Assessment & Plan: ?HCC ?lung cancer imaging suggestive of cirrhosis and pt has hep B for liver lesion biopsy by IR; coagulopathy improved with vit k awaiting MRI neck/brain pt requesting treatment at [facility] [place] if confirmed malignancy Status: Acute (2) Leukocytosis Assessment & Plan: increasing on antibiotics likely reactive leukocytosis from malignancy Status: Acute (3) Anemia Assessment & Plan: will check ferritin, retic count, b12, folate, FOBT to further characterize Status: Acute
--- NOTE | 2017-07-30 11:25 | CP.PCM.PN ---
Subjective - Date & Time of Evaluation Date of Evaluation: 07/30/17 Time of Evaluation: 11:24 - Subjective Subjective: Patient remains stable Still with a lot of pain on the neck area, Has no fever. Objective - Vital Signs/Intake and Output Vital Signs (last 24 hours): Temp Pulse Resp BP Pulse Ox 97.8 F 120 H 18 107/76 95 07/30/17 08:00 07/30/17 08:00 07/30/17 08:00 07/30/17 08:00 07/30/17 08:00 - Medications Medications: Current Medications Cyclobenzaprine HCl (Flexeril) 5 mg PO HS [facility] Last Admin: 07/29/17 21:20 Dose: 5 mg Docusate Sodium (Colace) 200 mg PO DAILY [facility] Last Admin: 07/30/17 08:23 Dose: Not Given Hydromorphone HCl (Dilaudid) 1 mg IVP Q4 PRN PRN Reason: Pain, severe (8-10) Last Admin: 07/30/17 08:07 Dose: 1 mg Sodium Chloride (Sodium Chloride 0.45%) 1,000 mls @ 80 mls/hr IV .[id number] [facility] Last Admin: 07/30/17 08:27 Dose: Not Given Piperacillin Sod/Tazobactam (Sod 3.375 gm/ Sodium Chloride) 100 mls @ 100 mls/ hr IVPB Q8 [facility] Last Admin: 07/30/17 08:35 Dose: 100 mls/hr Vancomycin HCl 500 mg/ Sodium (Chloride) 100 mls @ 100 mls/hr IVPB Q12 [facility] Last Admin: 07/30/17 08:24 Dose: 100 mls/hr Naproxen (Naproxen) 500 mg PO DAILY PRN PRN Reason: Pain, moderate (4-7) Last Admin: 07/27/17 13:24 Dose: 500 mg Naproxen (Naproxen) 500 mg PO Q12 [facility] Last Admin: 07/30/17 08:24 Dose: Not Given Ondansetron HCl (Zofran Inj) 4 mg IVP Q6 PRN PRN Reason: Nausea/Vomiting Oxycodone/Acetaminophen (Percocet 5/325 Mg Tab) 1 tab PO Q4 PRN PRN Reason: Pain, moderate (4-7) Stop: 07/31/17 22:43 Last Admin: 07/29/17 08:20 Dose: 1 tab Pantoprazole Sodium (Protonix Ec Tab) 40 mg PO DAILY [facility] Last Admin: 07/30/17 08:24 Dose: Not Given Sennosides (Senokot Tab) 17.2 mg PO HS [facility] Last Admin: 07/29/17 21:23 Dose: Not Given - Labs Labs: 07/30/17 06:25 07/30/17 06:25 PT 15.8 Seconds (9.8-13.1) H 07/29/17 04:15 INR 1.5 (0.9-1.2) H 07/29/17 04:15 APTT 32.8 Seconds (25.6-37.1) 07/29/17 04:15
--- NOTE | 2017-07-30 12:38 | RAD ---
PROCEDURE: Facial bones HISTORY: view ? metal in oral/ dental area- pt. for MRI COMPARISON: Not available TECHNIQUE: Multiple views of the facial bones including AP, Angelita's and bilateral lateral views. FINDINGS: No facial fracture identified. Please note that the examination is limited for evaluation of facial fracture by the absence of a Andrade view. There is extensive metallic dental fillings/crown evident. IMPRESSION: No facial fracture identified. See above.
[2017-07-30] MEDS ORDERED: Midazolam 5 MG/ML ONE (13:51)
[2017-07-30] MEDS ORDERED: Lidocaine 1% Inj (20ml) ONE (14:10)
[2017-07-30] MEDS ORDERED: Absorbable Gelatin Sponge Size 12-7 ONE (14:10)
[2017-07-30] MEDS ORDERED: Sodium Chloride 0.9% 1,000 ML IV ONE (14:53)
--- NOTE | 2017-07-30 15:06 | PCM.SURG1 ---
Surgeon's Initial Post Op Note - Surgeon's Notes Surgeon: SMITHA Singleton Degreasing Solution Reclaimer: None Type of Anesthesia: IV Sedation Pre-Operative Diagnosis: Liver mass Operative Findings: US showed complex left liver mass. Post-Operative Diagnosis: Liver mass Operation Performed: US guided left liver mass biopsy Specimen/Specimens Removed: 18 gauge core x 4 Estimated Blood Loss: EBL {In ML}: 1 Blood Products Given: N/A Drains Used: No Drains Post-Op Condition: Fair Date of Surgery/Procedure: 07/30/17 Time of Surgery/Procedure: 15:00
[2017-07-30] MEDS: Sodium Chloride 0.9% 1,000 ML IV SCH (15:59)
[2017-07-30] MEDS: Oxycodone/Acetaminophen 5/325 mg Tab PO PRN (18:52)
[2017-07-31] MEDS: Piperacillin/Tazobact 3.375 GM in Sodium Chloride 0.9% 100 ML IVPB SCH ×3 (01:24→17:29)
[2017-07-31] MEDS: Sodium Chloride 0.9% 1,000 ML IV SCH (01:26)
[2017-07-31 07:07] LABS: PARTIAL THROMBOPLASTIN TIME 32.5 Seconds (25.6-37.1)
[2017-07-31] MEDS: Naproxen 500 MG TAB PO SCH ×2 (09:51→21:18)
[2017-07-31] MEDS: Pantoprazole 40 mg EC Tab PO SCH (09:52)
[2017-07-31 12:21] LABS: HEP B SURFACE AG CONF CONFIRMED POSITIVE
[2017-07-31 12:55] LABS: FOLATE 5.9 ng/mL
[2017-07-31] MEDS ORDERED: Gadodiamide 287 MG/ML VIAL (15ML) IV ONE (14:11)
--- NOTE | 2017-07-31 15:27 | US ---
PROCEDURE: Date of procedure: 07/30/2017 Procedure: Ultrasound-guided percutaneous core biopsy of liver mass, CPT 21138 Ultrasound guidance for biopsy, CPT 45984 Medications: The patient was sedated by the anesthesiologist with IV sedation and monitoring. HISTORY: Liver Mass TECHNIQUE: Following informed consent and procedure time-out, the patient was placed supine on bed and limited ultrasound showed liver mass within the LEFT hepatic lobe consistent with mass seen on recent CT scan. After the patient abdomen was prepped and draped in the usual sterile fashion and the skin anesthetized with lidocaine, an 18 gauge core needle was advanced percutaneously under direct ultrasound guidance into the mass. Upon confirmation of needle position, three core specimens were obtained and sent for routine pathology. The biopsy track was then embolized with Gelfoam. A post biopsy ultrasound performed showed no hematoma. A dressing was applied. IMPRESSION: Ultrasound-guided core biopsy of liver mass.
--- NOTE | 2017-07-31 15:49 | MRI ---
PROCEDURE: MR CERVICAL SPINE WITH AND WITHOUT CONTRAST HISTORY: Metastatic liver disease, cervical spine pain COMPARISON: None available. TECHNIQUE: Multiecho multiplanar sequences were performed through the cervical spine with and without the use of intravenous contrast. 15 cc Omniscan was injected intravenously. FINDINGS: There is mild degenerative anterior listhesis of C4 on C5. There is mild reversal of normal cervical lordosis with cervical kyphosis centered at C5-6. There is abnormal T2 and STIR hyperintense signal in the tip of the C7 spinous process with associated abnormal enhancing soft tissue. There is normal signal in the cervical vertebral bodies. There are focal islands of fatty marrow in the posterior T2 and T3 vertebral bodies. The cervical cord is normal in contour, caliber and has normal intrinsic signal. C2-3: No disc herniation, spinal canal stenosis or neural foraminal narrowing. C3-4: Disc osteophyte complex with asymmetric left uncovertebral joint hypertrophy results in moderate left neural foraminal stenosis and mild spinal canal stenosis. C4-5: Broad-based disc osteophyte complex with resultant mild left neural foraminal stenosis and mild spinal canal stenosis. C5-C6: Disc osteophyte complex without neural foraminal. Mild spinal canal stenosis. C6-C7: No disc herniation, spinal canal stenosis or neuroforaminal narrowing. C7-T1: No disc herniation, spinal canal stenosis or neural foraminal narrowing. OTHER FINDINGS: None. IMPRESSION: 1. Findings are concerning for metastatic deposit in the tip of C7 spinous process with associated abnormal soft-tissue. 2. No evidence of metastatic lesions in the cervical vertebral bodies. 3. Mild multilevel degenerative disc disease with mild spinal canal stenosis at C4-5 and C5-6.
--- NOTE | 2017-07-31 16:15 | MRI ---
PROCEDURE: MRI BRAIN WITH AND WITHOUT CONTRAST HISTORY: rule out brain metastasis COMPARISON: None. TECHNIQUE: Multiplanar, multisequence MR images of the brain were obtained with and without intravenous contrast enhancement. FINDINGS: HEMORRHAGE: None DWI: There is a focal area of restricted diffusion in the right anterior sub insular white matter. There is also a tiny focus of restricted diffusion in the right posterior parietal subcortical white matter. BRAIN PARENCHYMA: There is subtle increased T2/FLAIR signal in the right anterior sub insular white matter corresponding to the focus of restricted diffusion. There is no mass, mass effect or abnormal extra-axial fluid collection. There is a developmental venous anomaly in the right centrum semiovale. ENHANCEMENT: No abnormal intracranial enhancement. VENTRICLES: The ventricles are normal in size, shape and configuration. CRANIUM: Unremarkable. ORBITS: Grossly unremarkable. PARANASAL SINUSES/MASTOIDS: Clear VASCULAR SYSTEM: Skull base flow voids intact. OTHER FINDINGS: None . IMPRESSION: 1. Findings are most compatible with acute infarction in the right anterior subinsular white matter and tiny focus of acute infarction in the right posterior parietal subcortical white matter. 2. No evidence of intracranial metastasis. Important findings were discussed with Nurse Thurston on 07/31/2017 at 4:10 p.m.
[2017-07-31] MEDS: Sodium Chloride 0.45% 1,000 ML IV SCH (17:30)
[2017-07-31] MEDS: Dextrose 5%/Lactated Ringer's 1,000 ML IV SCH (21:23)
[2017-08-01] MEDS: Piperacillin/Tazobact 3.375 GM in Sodium Chloride 0.9% 100 ML IVPB SCH ×4 (00:03→16:31)
[2017-08-01] MEDS: Dextrose 5%/Lactated Ringer's 1,000 ML IV SCH ×2 (05:40→16:30)
[2017-08-01 06:24] LABS: HEMATOCRIT 30.8 % (34.0-47.0); MEAN CELL VOLUME 87.7 fl (81.0-99.0); MEAN CORPUSCULAR HEMOGLOBIN 27.9 pg (27.0-31.0); MEAN CORPUSCULAR HGB CONC 31.8 g/dL (33.0-37.0); RED CELL DISTRIBUTION WIDTH 15.9 % (11.5-14.5)
[2017-08-01 06:42] LABS: WHITE BLOOD COUNT 39.2 K/uL (4.8-10.8)
[2017-08-01 07:01] LABS: ALB/GLOB RATIO 0.7 (1.0-2.1); ALKALINE PHOSPHATASE 401 U/L (38-126); ALT/SGPT 123 U/L (9-52); AST/SGOT 287 U/L (14-36); BILIRUBIN,TOTAL 1.9 mg/dl (0.2-1.3); BLOOD UREA NITROGEN 16 mg/dl (7-17); CARBON DIOXIDE 20 mmol/L (22-30); CHLORIDE 107 mmol/L (98-107); GFR AFRICAN-AMERICAN > 60; GLUCOSE,RANDOM 96 mg/dL (65-105); POTASSIUM 4.3 MMOL/L (3.6-5.0); SODIUM 139 mmol/l (132-148); TOTAL PROTEIN 5.7 G/DL (6.3-8.2)
[2017-08-01] MEDS: Naproxen 500 MG TAB PO SCH ×2 (08:50→21:25)
[2017-08-01] MEDS: Pantoprazole 40 mg EC Tab PO SCH (08:52)
--- NOTE | 2017-08-01 12:01 | CP.PCM.PCO ---
Physician Communication Note - Physician Communication Note Physician Communication Note: Lipitor contraindicated for tx cva 2nd transaminitis
[2017-08-01] MEDS: Megestrol Acetate 40 mg/ml Cup PO SCH (14:05)
--- NOTE | 2017-08-01 16:07 | CON ---
DATE: 08/01/2017 CHIEF COMPLAINT: Right MCA territory infarct on the MRI brain in anterior subinsular white matter and tiny focus in the right posterior parietal subcortical white matter. HISTORY OF PRESENT ILLNESS: This is a 61-year-old woman who is a daily smoker, smokes more than 2 packs per day, hypertension, hepatitis B, who came to the hospital for right abdominal quadrant pain, neck and back pain, generalized fatigue and unintentional weight loss, found to have liver lesion status post Interventional Radiology as well as a lung mass, and is undergoing workup for malignancy and is found to have an acute infarct in the right anterior subinsular white matter and anterior tiny focus of the acute infarction in the right posterior parietal subcortical white matter with no residual deficits on the left side except for mild slow finger taping on the left hand. Otherwise, she is moving all extremities. No pronator drift seen. Her headaches are much better. She does have low blood pressure systolic and diastolic, which we will need to keep her blood pressure above 120 systolic, and will be on a baby aspirin and Lovenox for DVT prophylaxis. No acute events overnight. Oncology notes reviewed and appreciated. PAST MEDICAL HISTORY: History of hepatitis B. FAMILY HISTORY: Noncontributory. SOCIAL HISTORY: Chronic smoker. No illicit drug use or EtOH abuse. REVIEW OF SYSTEMS: A 14-point review of systems negative except in the HPI. ALLERGIES: NO KNOWN DRUG ALLERGIES. PHYSICAL EXAMINATION GENERAL: The patient is sitting up in bed, in no acute distress. VITAL SIGNS: Temperature 97.7, pulse rate 116, blood pressure 88/60, respiratory rate 18, and oxygen saturation 97% by room air HEENT: Head is atraumatic and normocephalic. PERRLA. Extraocular muscles intact. NECK: Supple. No JVD. No adenopathy noted. LUNGS: Clear to auscultation. No adventitious sounds. HEART: S1 and S2. Normal rate and rhythm. No murmur, rubs, or gallops. ABDOMEN: Soft, nontender, nondistended. Bowel sounds present. EXTREMITIES: No clubbing. No cyanosis. Peripheral pulses 2+ felt bilaterally. NEUROLOGIC: The patient is alert and oriented to person, place, month, and year. Speech is fluent without any errors. Poor attention span. Poor thought process. Cranial nerves II through XII intact. Motor exam: Moves all extremities equally. No pronator drift seen. There is mild left reduced finger tapping compared to the right. Toes are upgoing bilaterally. Sensory exam: Light touch, pinprick, proprioception, and vibration is intact. DTRs are 2+ throughout. Coordination of [id number] intact. Gait is deferred for now. LABORATORY DATA: Sodium is 139, potassium 4.3, chloride 107, carbon dioxide of 20, BUN of 16, and creatinine 0.6, random glucose 96. Elevated LFTs. Elevated CA-125. ASSESSMENT AND PLAN: A 61-year-old woman with history of hepatitis B, chronic smoker, came into the hospital with abdominal pain, generalized malaise and fatigue, and chronic back pain and neck pain as well as unintentional weight loss, found to have liver lesions and bony metastasis and likely hepatocellular carcinoma and possibly a lung mass. She was also admitted secondary to hepatocellular carcinoma, has some transaminitis which is elevated from underlying liver lesions. I was consulted because she found to have an acute infarction on the MRI of brain on the right anterior subinsular white matter and right posterior parietal subcortical white matter, which is likely secondary to diffuse atherosclerotic disease from given the history of a chronic smoker as well as being hypercoagulable from underlying cancer. At this time, there is no evidence of any intracranial metastasis. RECOMMENDATIONS: 1. Aspirin 81 mg p.o. daily for stroke prevention. 2. We will hold off statins due to elevated LFTs. 3. Lovenox for DVT prophylaxis. 4. Out of bed to chair physical and occupational therapy. 5. Continue to monitor electrolytes and correct accordingly. 6. Continue with sepsis protocol with appropriate antibiotics. Thank you for this consult. Nick Samuel MD
[2017-08-02] MEDS: Piperacillin/Tazobact 3.375 GM in Sodium Chloride 0.9% 100 ML IVPB SCH ×3 (00:09→17:55)
[2017-08-02 05:54] LABS: HEMATOCRIT 31.8 % (34.0-47.0); MEAN CELL VOLUME 87.2 fl (81.0-99.0); MEAN CORPUSCULAR HEMOGLOBIN 27.8 pg (27.0-31.0); MEAN CORPUSCULAR HGB CONC 31.9 g/dL (33.0-37.0); RED CELL DISTRIBUTION WIDTH 16.6 % (11.5-14.5)
[2017-08-02 05:57] LABS: BLOOD UREA NITROGEN 19 mg/dl (7-17); CALCIUM 9.2 mg/dL (8.4-10.2); CARBON DIOXIDE 20 mmol/L (22-30); CHLORIDE 108 mmol/L (98-107); GFR AFRICAN-AMERICAN > 60; GLUCOSE,RANDOM 116 mg/dL (65-105); POTASSIUM 3.9 MMOL/L (3.6-5.0); SODIUM 141 mmol/l (132-148)
[2017-08-02] MEDS: Enoxaparin 40 mg Syringe SC SCH (09:26)
[2017-08-02] MEDS: Naproxen 500 MG TAB PO SCH ×2 (09:27→21:50)
[2017-08-02] MEDS: Pantoprazole 40 mg EC Tab PO SCH (09:28)
[2017-08-02] MEDS: Megestrol Acetate 40 mg/ml Cup PO SCH (09:55)
[2017-08-02] MEDS ORDERED: Simethicone 80 mg Chewtab PO PRN (11:18)
--- NOTE | 2017-08-02 12:42 | CP.PCM.PN ---
Subjective - Date & Time of Evaluation Date of Evaluation: 07/31/17 Time of Evaluation: 18:00 - Subjective Subjective: Has neck and abdominal discomfort Objective - Vital Signs/Intake and Output Vital Signs (last 24 hours): Temp Pulse Resp BP Pulse Ox 97.5 F L 107 H 18 92/65 L 96 08/02/17 08:00 08/02/17 09:00 08/02/17 08:00 08/02/17 08:00 08/02/17 08:00 - Medications Medications: Current Medications Aspirin (Ecotrin) 81 mg PO DAILY [facility] Last Admin: 08/02/17 09:32 Dose: 81 mg Cyclobenzaprine HCl (Flexeril) 5 mg PO HS [facility] Last Admin: 08/01/17 21:25 Dose: 5 mg Cyclobenzaprine HCl (Flexeril) 5 mg PO TID PRN PRN Reason: Muscle spasm Docusate Sodium (Colace) 200 mg PO DAILY [facility] Last Admin: 08/02/17 09:27 Dose: 200 mg Enoxaparin Sodium (Lovenox) 40 mg SC DAILY [facility] PRN Reason: Protocol Last Admin: 08/02/17 09:26 Dose: 40 mg Hydromorphone HCl (Dilaudid) 1 mg IVP Q4 PRN PRN Reason: Pain, severe (8-10) Last Admin: 08/02/17 01:40 Dose: 1 mg Piperacillin Sod/Tazobactam (Sod 3.375 gm/ Sodium Chloride) 100 mls @ 100 mls/ hr IVPB Q8 [facility] Last Admin: 08/02/17 09:26 Dose: 100 mls/hr Vancomycin HCl 500 mg/ Sodium (Chloride) 100 mls @ 100 mls/hr IVPB Q12 [facility] Last Admin: 08/02/17 09:25 Dose: 100 mls/hr Megestrol Acetate (Megace) 400 mg PO DAILY [facility] Last Admin: 08/02/17 09:55 Dose: 400 mg Naproxen (Naproxen) 500 mg PO DAILY PRN PRN Reason: Pain, moderate (4-7) Last Admin: 07/27/17 13:24 Dose: 500 mg Naproxen (Naproxen) 500 mg PO Q12 [facility] Last Admin: 08/02/17 09:27 Dose: 500 mg Ondansetron HCl (Zofran Inj) 4 mg IVP Q6 PRN PRN Reason: Nausea/Vomiting Last Admin: 08/01/17 09:02 Dose: 4 mg Pantoprazole Sodium (Protonix Ec Tab) 40 mg PO DAILY [facility] Last Admin: 08/02/17 09:28 Dose: 40 mg Sennosides (Senokot Tab) 17.2 mg PO HS [facility] Last Admin: 08/01/17 21:27 Dose: 17.2 mg Simethicone (Mylicon Chew Tab) 80 mg PO TID PRN PRN Reason: Flatulence Last Admin: 08/02/17 12:19 Dose: 80 mg - Labs Labs: 08/02/17 05:30 08/02/17 05:30 PT 15.7 Seconds (9.8-13.1) H 07/31/17 06:30 INR 1.5 (0.9-1.2) H 07/31/17 06:30 APTT 32.5 Seconds (25.6-37.1) 07/31/17 06:30 - Head Exam Head Exam: ATRAUMATIC - ENT Exam ENT Exam: Mucous Membranes Dry - Respiratory Exam Respiratory Exam: NORMAL BREATHING PATTERN - Cardiovascular Exam Cardiovascular Exam: +S1, +S2 - GI/Abdominal Exam GI & Abdominal Exam: Normal Bowel Sounds - Extremities Exam Extremities Exam: Pedal Edema Assessment and Plan (1) Metastatic disease Assessment & Plan: s/p IR liver biopsy f/u path awaiting MRI Status: Acute (2) Leukocytosis Assessment & Plan: on antibiotics likely reactive to cancer Status: Acute (3) Anemia Assessment & Plan: anemia of chronic disease Status: Acute
--- NOTE | 2017-08-02 12:45 | CP.PCM.PN ---
Subjective - Date & Time of Evaluation Date of Evaluation: 08/01/17 Time of Evaluation: 12:00 - Subjective Subjective: Same neck and abdominal discomfort, controlled with pain meds MRI brain shows acute CVA, no brain mets Objective - Vital Signs/Intake and Output Vital Signs (last 24 hours): Temp Pulse Resp BP Pulse Ox 97.5 F L 107 H 18 92/65 L 96 08/02/17 08:00 08/02/17 09:00 08/02/17 08:00 08/02/17 08:00 08/02/17 08:00 - Medications Medications: Current Medications Aspirin (Ecotrin) 81 mg PO DAILY [facility] Last Admin: 08/02/17 09:32 Dose: 81 mg Cyclobenzaprine HCl (Flexeril) 5 mg PO HS [facility] Last Admin: 08/01/17 21:25 Dose: 5 mg Cyclobenzaprine HCl (Flexeril) 5 mg PO TID PRN PRN Reason: Muscle spasm Docusate Sodium (Colace) 200 mg PO DAILY [facility] Last Admin: 08/02/17 09:27 Dose: 200 mg Enoxaparin Sodium (Lovenox) 40 mg SC DAILY [facility] PRN Reason: Protocol Last Admin: 08/02/17 09:26 Dose: 40 mg Hydromorphone HCl (Dilaudid) 1 mg IVP Q4 PRN PRN Reason: Pain, severe (8-10) Last Admin: 08/02/17 01:40 Dose: 1 mg Piperacillin Sod/Tazobactam (Sod 3.375 gm/ Sodium Chloride) 100 mls @ 100 mls/ hr IVPB Q8 [facility] Last Admin: 08/02/17 09:26 Dose: 100 mls/hr Vancomycin HCl 500 mg/ Sodium (Chloride) 100 mls @ 100 mls/hr IVPB Q12 [facility] Last Admin: 08/02/17 09:25 Dose: 100 mls/hr Megestrol Acetate (Megace) 400 mg PO DAILY [facility] Last Admin: 08/02/17 09:55 Dose: 400 mg Naproxen (Naproxen) 500 mg PO DAILY PRN PRN Reason: Pain, moderate (4-7) Last Admin: 07/27/17 13:24 Dose: 500 mg Naproxen (Naproxen) 500 mg PO Q12 [facility] Last Admin: 08/02/17 09:27 Dose: 500 mg Ondansetron HCl (Zofran Inj) 4 mg IVP Q6 PRN PRN Reason: Nausea/Vomiting Last Admin: 08/01/17 09:02 Dose: 4 mg Pantoprazole Sodium (Protonix Ec Tab) 40 mg PO DAILY [facility] Last Admin: 08/02/17 09:28 Dose: 40 mg Sennosides (Senokot Tab) 17.2 mg PO HS [facility] Last Admin: 08/01/17 21:27 Dose: 17.2 mg Simethicone (Mylicon Chew Tab) 80 mg PO TID PRN PRN Reason: Flatulence Last Admin: 08/02/17 12:19 Dose: 80 mg - Labs Labs: 08/02/17 05:30 08/02/17 05:30 PT 15.7 Seconds (9.8-13.1) H 07/31/17 06:30 INR 1.5 (0.9-1.2) H 07/31/17 06:30 APTT 32.5 Seconds (25.6-37.1) 07/31/17 06:30 - Head Exam Head Exam: ATRAUMATIC - Eye Exam Eye Exam: Normal appearance - ENT Exam ENT Exam: Mucous Membranes Dry - Respiratory Exam Respiratory Exam: NORMAL BREATHING PATTERN - Cardiovascular Exam Cardiovascular Exam: +S1, +S2 - GI/Abdominal Exam GI & Abdominal Exam: Normal Bowel Sounds - Extremities Exam Extremities Exam: Normal Inspection Assessment and Plan (1) Metastatic disease Assessment & Plan: awaiting biopsy results will consider palliative radiotherapy to C7 lesion if confirmed malignancy pt and requesting systemic chemotherapy at [facility] [place] Status: Acute (2) Leukocytosis Assessment & Plan: on antibiotics likely reactive Status: Acute (3) Anemia Assessment & Plan: anemia of chronic disease Status: Acute
--- NOTE | 2017-08-02 12:47 | CP.PCM.PN ---
Subjective - Date & Time of Evaluation Date of Evaluation: 08/02/17 Time of Evaluation: 11:00 - Subjective Subjective: Has abdominal bloating, neck pain. Prelim path shows poorly differentiated carcinoma Discussed with radiation oncology Dr. Samson about palliative radiotherapy to the neck lesion given continued severe pain; she will see the patient at [place] Saturday morning. Transport to be arranged Objective - Vital Signs/Intake and Output Vital Signs (last 24 hours): Temp Pulse Resp BP Pulse Ox 97.5 F L 107 H 18 92/65 L 96 08/02/17 08:00 08/02/17 09:00 08/02/17 08:00 08/02/17 08:00 08/02/17 08:00 - Medications Medications: Current Medications Aspirin (Ecotrin) 81 mg PO DAILY [facility] Last Admin: 08/02/17 09:32 Dose: 81 mg Cyclobenzaprine HCl (Flexeril) 5 mg PO HS [facility] Last Admin: 08/01/17 21:25 Dose: 5 mg Cyclobenzaprine HCl (Flexeril) 5 mg PO TID PRN PRN Reason: Muscle spasm Docusate Sodium (Colace) 200 mg PO DAILY [facility] Last Admin: 08/02/17 09:27 Dose: 200 mg Enoxaparin Sodium (Lovenox) 40 mg SC DAILY [facility] PRN Reason: Protocol Last Admin: 08/02/17 09:26 Dose: 40 mg Hydromorphone HCl (Dilaudid) 1 mg IVP Q4 PRN PRN Reason: Pain, severe (8-10) Last Admin: 08/02/17 01:40 Dose: 1 mg Piperacillin Sod/Tazobactam (Sod 3.375 gm/ Sodium Chloride) 100 mls @ 100 mls/ hr IVPB Q8 [facility] Last Admin: 08/02/17 09:26 Dose: 100 mls/hr Vancomycin HCl 500 mg/ Sodium (Chloride) 100 mls @ 100 mls/hr IVPB Q12 [facility] Last Admin: 08/02/17 09:25 Dose: 100 mls/hr Megestrol Acetate (Megace) 400 mg PO DAILY [facility] Last Admin: 08/02/17 09:55 Dose: 400 mg Naproxen (Naproxen) 500 mg PO DAILY PRN PRN Reason: Pain, moderate (4-7) Last Admin: 07/27/17 13:24 Dose: 500 mg Naproxen (Naproxen) 500 mg PO Q12 [facility] Last Admin: 08/02/17 09:27 Dose: 500 mg Ondansetron HCl (Zofran Inj) 4 mg IVP Q6 PRN PRN Reason: Nausea/Vomiting Last Admin: 08/01/17 09:02 Dose: 4 mg Pantoprazole Sodium (Protonix Ec Tab) 40 mg PO DAILY [facility] Last Admin: 08/02/17 09:28 Dose: 40 mg Sennosides (Senokot Tab) 17.2 mg PO HS [facility] Last Admin: 08/01/17 21:27 Dose: 17.2 mg Simethicone (Mylicon Chew Tab) 80 mg PO TID PRN PRN Reason: Flatulence Last Admin: 08/02/17 12:19 Dose: 80 mg - Labs Labs: 08/02/17 05:30 08/02/17 05:30 PT 15.7 Seconds (9.8-13.1) H 07/31/17 06:30 INR 1.5 (0.9-1.2) H 07/31/17 06:30 APTT 32.5 Seconds (25.6-37.1) 07/31/17 06:30 - Head Exam Head Exam: ATRAUMATIC - Eye Exam Eye Exam: Normal appearance - ENT Exam ENT Exam: Mucous Membranes Dry - Respiratory Exam Respiratory Exam: NORMAL BREATHING PATTERN - Cardiovascular Exam Cardiovascular Exam: +S1, +S2 - GI/Abdominal Exam GI & Abdominal Exam: Distended - Extremities Exam Extremities Exam: Normal Inspection Assessment and Plan (1) Metastatic disease Assessment & Plan: prelim path poorly differentiated carcinoma for palliative radiotherapy to C7 lesion f/u final path pt and requesting systemic treatment at [facility] Status: Acute (2) Leukocytosis Assessment & Plan: on antibiotics likely reactive Status: Acute (3) Anemia Assessment & Plan: anemia of chronic disease Status: Acute
--- NOTE | 2017-08-02 15:29 | CP.PCM.PN ---
Subjective - Date & Time of Evaluation Date of Evaluation: 08/02/17 Time of Evaluation: 15:26 - Subjective Subjective: Patient seen and examined with with Dr. Muñoz. Patient seen resting in her chair comfortably. Pain is well controlled with medication. Patient is concerned about her biopsy results. No acute overnight events. - Objective - Vital Signs/Intake and Output Vital Signs (last 24 hours): Temp Pulse Resp BP Pulse Ox 97.5 F L 120 H 20 104/72 97 08/02/17 12:00 08/02/17 12:00 08/02/17 12:00 08/02/17 12:00 08/02/17 12:00 - Medications Medications: Current Medications Aspirin (Ecotrin) 81 mg PO DAILY [facility] Last Admin: 08/02/17 09:32 Dose: 81 mg Cyclobenzaprine HCl (Flexeril) 5 mg PO HS [facility] Last Admin: 08/01/17 21:25 Dose: 5 mg Cyclobenzaprine HCl (Flexeril) 5 mg PO TID PRN PRN Reason: Muscle spasm Docusate Sodium (Colace) 200 mg PO DAILY [facility] Last Admin: 08/02/17 09:27 Dose: 200 mg Enoxaparin Sodium (Lovenox) 40 mg SC DAILY [facility] PRN Reason: Protocol Last Admin: 08/02/17 09:26 Dose: 40 mg Hydromorphone HCl (Dilaudid) 1 mg IVP Q4 PRN PRN Reason: Pain, severe (8-10) Last Admin: 08/02/17 01:40 Dose: 1 mg Piperacillin Sod/Tazobactam (Sod 3.375 gm/ Sodium Chloride) 100 mls @ 100 mls/ hr IVPB Q8 [facility] Last Admin: 08/02/17 09:26 Dose: 100 mls/hr Vancomycin HCl 500 mg/ Sodium (Chloride) 100 mls @ 100 mls/hr IVPB Q12 [facility] Last Admin: 08/02/17 09:25 Dose: 100 mls/hr Megestrol Acetate (Megace) 400 mg PO DAILY [facility] Last Admin: 08/02/17 09:55 Dose: 400 mg Naproxen (Naproxen) 500 mg PO DAILY PRN PRN Reason: Pain, moderate (4-7) Last Admin: 07/27/17 13:24 Dose: 500 mg Naproxen (Naproxen) 500 mg PO Q12 [facility] Last Admin: 08/02/17 09:27 Dose: 500 mg Ondansetron HCl (Zofran Inj) 4 mg IVP Q6 PRN PRN Reason: Nausea/Vomiting Last Admin: 08/01/17 09:02 Dose: 4 mg Pantoprazole Sodium (Protonix Ec Tab) 40 mg PO DAILY [facility] Last Admin: 08/02/17 09:28 Dose: 40 mg Sennosides (Senokot Tab) 17.2 mg PO HS [facility] Last Admin: 08/01/17 21:27 Dose: 17.2 mg Simethicone (Mylicon Chew Tab) 80 mg PO TID PRN PRN Reason: Flatulence Last Admin: 08/02/17 12:19 Dose: 80 mg - Labs Labs: 08/02/17 05:30 08/02/17 05:30 PT 15.7 Seconds (9.8-13.1) H 07/31/17 06:30 INR 1.5 (0.9-1.2) H 07/31/17 06:30 APTT 32.5 Seconds (25.6-37.1) 07/31/17 06:30 - Constitutional Appears: No Acute Distress - Head Exam Head Exam: ATRAUMATIC - Eye Exam Eye Exam: Normal appearance - ENT Exam ENT Exam: Mucous Membranes Moist - Respiratory Exam Respiratory Exam: Clear to Ausculation Bilateral, NORMAL BREATHING PATTERN - Cardiovascular Exam Cardiovascular Exam: REGULAR RHYTHM, +S1, +S2 - GI/Abdominal Exam GI & Abdominal Exam: Soft, Normal Bowel Sounds. absent: Tenderness - Extremities Exam Extremities Exam: Normal Inspection - Neurological Exam Neurological Exam: Alert, Awake, CN II-XII Intact, Oriented x3 - Skin Skin Exam: Dry, Normal Color, Warm Assessment and Plan - Assessment and Plan (Free Text) Assessment: Assessment and Plan (1) Metastatic disease Assessment & Plan: - Patient's prelim path: Shows poorly differentiated carcinoma. - Palliative radiotherapy to C7 lesion - Follow up with with confirmatory pathology results - Heme/Onc appreciated: Dr. Hurst - Hep B antigen - PT/OT (2) Leukocytosis Assessment & Plan: - Vancomycin and Pipercillin likely reactive (3) Right MCA infarct - Neurology consulted - MRI brain showed infart on right MCA territory. - Continue with daily 81mg of asprin - Lovenox for DVT prophylaxis - Abd U/S (4) Anemia Assessment & Plan: anemia of chronic disease (5) DVT prophylaxis Lovenox
--- NOTE | 2017-08-02 16:13 | CP.PCM.CON ---
History of Present Illness - History of Present Illness History of Present Illness: 61 yo woman w/ recently diagnosed metastatic HCC. Patient was found to have mets to C7 spinous process, and is referred for pain management. Tentatively XRT has been set up for palliative therapy. Patient states that she has right sided neck pain, with radiation up to the right occipital region, and no radiation down to the right shoulder or arm. The pain is mainly with movement. This is suggestive of cervical spondylotic pain. C7 spinous process lesion shouldn't cause the current pain. MRI has been done, but doesn't reveal any severe stenosis, and the most stenotic areas are on the left side anyway. During examination, patient developed episode of tachycardia and SOB from trying to get out of the bed to use the bathroom. Clinically she may not be able to tolerate high dose opioid therapy. Past Patient History - Infectious Disease Hx of Infectious Diseases: None - Past Medical History & Family History Past Medical History?: Yes - Past Social History Smoking Status: Former Smoker - CARDIAC Hx Hypertension: Yes - PULMONARY Hx Respiratory Disorders: Yes Hx Bronchitis: Yes - NEUROLOGICAL Hx Neurological Disorder: No - HEENT Hx HEENT Problems: No - RENAL Hx Chronic Kidney Disease: No - ENDOCRINE/METABOLIC Hx Endocrine Disorders: No - HEMATOLOGICAL/ONCOLOGICAL Hx Blood Disorders: Yes Hx Hepatitis B: Yes (28 yrs ago) - INTEGUMENTARY Hx Dermatological Problems: No - MUSCULOSKELETAL/RHEUMATOLOGICAL Hx Musculoskeletal Disorders: No Hx Falls: No - GASTROINTESTINAL Hx Gastrointestinal Disorders: No - GENITOURINARY/GYNECOLOGICAL Hx Genitourinary Disorders: No - PSYCHIATRIC Hx Psychophysiologic Disorder: No Hx Substance Use: No - SURGICAL HISTORY Hx Surgeries: Yes Other/Comment: gum surgery 28 yrs ago - ANESTHESIA Hx Anesthesia: Yes Hx Anesthesia Reactions: No Hx Malignant Hyperthermia: No Has any member of the family had a problem w/ anesthesia?: No Meds Allergies/Adverse Reactions: Allergies Allergy/AdvReac Type Severity Reaction Status Date / Time No Known Allergies Allergy Verified 07/26/17 11:03 - Medications Medications: Current Medications Aspirin (Ecotrin) 81 mg PO DAILY [facility] Last Admin: 08/02/17 09:32 Dose: 81 mg Cyclobenzaprine HCl (Flexeril) 5 mg PO HS [facility] Last Admin: 08/01/17 21:25 Dose: 5 mg Cyclobenzaprine HCl (Flexeril) 5 mg PO TID PRN PRN Reason: Muscle spasm Last Admin: 08/02/17 15:41 Dose: 5 mg Docusate Sodium (Colace) 200 mg PO DAILY [facility] Last Admin: 08/02/17 09:27 Dose: 200 mg Enoxaparin Sodium (Lovenox) 40 mg SC DAILY [facility] PRN Reason: Protocol Last Admin: 08/02/17 09:26 Dose: 40 mg Hydromorphone HCl (Dilaudid) 1 mg IVP Q4 PRN PRN Reason: Pain, severe (8-10) Last Admin: 08/02/17 01:40 Dose: 1 mg Piperacillin Sod/Tazobactam (Sod 3.375 gm/ Sodium Chloride) 100 mls @ 100 mls/ hr IVPB Q8 [facility] Last Admin: 08/02/17 09:26 Dose: 100 mls/hr Vancomycin HCl 500 mg/ Sodium (Chloride) 100 mls @ 100 mls/hr IVPB Q12 [facility] Last Admin: 08/02/17 09:25 Dose: 100 mls/hr Megestrol Acetate (Megace) 400 mg PO DAILY [facility] Last Admin: 08/02/17 09:55 Dose: 400 mg Naproxen (Naproxen) 500 mg PO DAILY PRN PRN Reason: Pain, moderate (4-7) Last Admin: 07/27/17 13:24 Dose: 500 mg Naproxen (Naproxen) 500 mg PO Q12 [facility] Last Admin: 08/02/17 09:27 Dose: 500 mg Ondansetron HCl (Zofran Inj) 4 mg IVP Q6 PRN PRN Reason: Nausea/Vomiting Last Admin: 08/01/17 09:02 Dose: 4 mg Pantoprazole Sodium (Protonix Ec Tab) 40 mg PO DAILY [facility] Last Admin: 08/02/17 09:28 Dose: 40 mg Sennosides (Senokot Tab) 17.2 mg PO HS [facility] Last Admin: 08/01/17 21:27 Dose: 17.2 mg Simethicone (Mylicon Chew Tab) 80 mg PO TID PRN PRN Reason: Flatulence Last Admin: 08/02/17 12:19 Dose: 80 mg Physical Exam - Neck Exam Additional comments: TTP over right mid cervical facets. Minimal range of motion due to the pain. Negative Spurling's on the right. - Respiratory Exam Respiratory Exam: Respiratory Distress - Cardiovascular Exam Cardiovascular Exam: REGULAR RHYTHM - GI/Abdominal Exam GI & Abdominal Exam: Soft Results - Vital Signs Recent Vital Signs: Last Vital Signs Temp 97.6 F 08/02/17 15:44 Pulse 129 H 08/02/17 15:44 Resp 20 08/02/17 15:44 BP 88/67 L 08/02/17 15:44 Pulse Ox 98 08/02/17 15:44 - Labs Result Diagrams: 08/02/17 05:30 08/02/17 05:30 Labs: Laboratory Results - last 24 hr 08/02/17 08/02/17 05:30 05:30 WBC 38.0 H* RBC 3.65 L Hgb 10.1 L Hct 31.8 L MCV 87.2 MCH 27.8 MCHC 31.9 L RDW 16.6 H Plt Count 186 Sodium 141 Potassium 3.9 Chloride 108 H Carbon Dioxide 20 L Anion Gap 17 BUN 19 H Creatinine 0.9 Est GFR ( Amer) > 60 Est GFR (Non-Af Amer) > 60 Random Glucose 116 H Calcium 9.2 Assessment & Plan - Assessment and Plan (Free Text) Assessment: 61 yo woman w/ metastatic CA, with involvement of C7 spinous process. I am not sure if that'd cause the patient's current pain, but the patient is not a candidate for interventional pain management anyway due to coagulopathy. Per report, patient is to have palliative XRT and is possibly being transferred to [facility]. Currently patient also appears to be dyspneic - will contact PMD regarding patient's current clinical status - continue Dilaudid IV for now, can increase frequency to q3h PRN - f/u after XRT - consider soft neck collar if patient can tolerate it - once more stable, can consider PO regimen for home use - f/u GI recommendation for bowel regimen
--- NOTE | 2017-08-02 20:03 | US ---
HISTORY: eval for ascites; pt. with abd pain, distention COMPARISON: 07/28/2017. CT abdomen and pelvis 07/26/2017 abdominal ultrasound TECHNIQUE: Sonographic evaluation of the right upper quadrant of the abdomen. FINDINGS: LIVER: Measures 20.2 cm in length. Hepatopedal blood flow. Fatty infiltration manifest ultrasonographically as increased echogenicity of the liver parenchyma. Mass lesion left hepatic lobe 3.4 x 5.2 x 3.3 cm GALLBLADDER: Sludge identified within the gallbladder and there is gallbladder wall edema without evidence of calculus disease. COMMON BILE DUCT: Measures 4.9 mm. No stones. No dilatation. PANCREAS: Unremarkable as visualized. No mass. No ductal dilatation. RIGHT KIDNEY: Measures 4.1 x 10.1 cm in length. Normal echogenicity. No calculus, mass, or hydronephrosis. AORTA: No aneurysmal dilatation. IVC: Unremarkable. OTHER FINDINGS: Intra-abdominal ascites identified, progressive compared to the prior CT and ultrasound study. IMPRESSION: Heterogeneous enlarged liver. Focal mass in the left hepatic lobe which appears less extensive 1 seen with prior studies. New, of moderate volume incompletely visualized ascites.
[2017-08-03] MEDS: Piperacillin/Tazobact 3.375 GM in Sodium Chloride 0.9% 100 ML IVPB SCH ×3 (00:22→16:31)
[2017-08-03] MEDS ORDERED: Sodium Chloride 0.9% 250 ML IV ONE ×2 (05:56→06:15)
--- NOTE | 2017-08-03 06:09 | CP.PCM.PCO ---
Addendum Addendum: 08/03/17 05:58 CC: hypotension with tachycardia S: Pt denies chest pain and has been having SOB at baseline since admission that worsens when she sits up or stands. As per nursing: Unable to medicate patient for pain due to the low blood pressure O: BP RUE- 92/67, HR- 130; BP LUE- 78/57, HR- 132 GEN: NAD PULM: decreased breath sounds b/l R>L, no wheeze CVS: Telemetry showing HR 120s - 130s with known inverted T waves ABD: soft, anasarca EXT: edema A/P: 61F with metastatic HCC, review of charts indicates she has been hypotensive and intermittently tachycardic up 129bpm 08/02/2017 @ ~3pm. At that time no calls were made and no interventions ordered. Case discussed with Dr Randall, hospitalist. It was decided that the HR may be compensatory to the BP. Will also confirm rhythm as last EKG 07/26/2017. - 12 lead EKG - 250ml 0.9% NS, bolus, x1 08/03/17 06:31 - EKG sinus tachycardia, no acute changes - HR with some improvement, now in the 113-115bpm range
[2017-08-03] MEDS: Megestrol Acetate 40 mg/ml Cup PO SCH (09:03)
[2017-08-03] MEDS: Naproxen 500 MG TAB PO SCH ×2 (09:03→21:44)
[2017-08-03] MEDS: Pantoprazole 40 mg EC Tab PO SCH (09:03)
[2017-08-03] MEDS: Enoxaparin 40 mg Syringe SC SCH (09:03)
[2017-08-03] MEDS: Lidocaine 5% Patch TD SCH (09:06)
--- NOTE | 2017-08-03 15:06 | PN ---
DATE: 08/03/2017 SUBJECTIVE: The patient is seen and examined. Interim events noted. The patient is seen for Dr. Cardozo while he is away. Chart reviewed. The patient remains in progressive care unit on telemetry monitoring, complains of neck pain and abdominal discomfort. Denies any chest pain or shortness of breath. PHYSICAL EXAMINATION: GENERAL: The patient is in no acute distress. VITAL SIGNS: Stable. Temperature 97.6, pulse 110, respiration 18, blood pressure 92/65, no orthostatic changes, saturation is 96% . HEENT: No JVD. No thyromegaly. No lymphadenopathy. No nystagmus. Normocephalic and atraumatic skull. No neck tenderness. HEART: S1 and S2, normal and regular. No significant murmur, gallop, or rub is heard. LUNGS: Shows good bilateral air exchange. No rales or rhonchi. ABDOMEN: The patient has mild distention. No signs of acute abdomen. No guarding. No rigidity. No rebound. Bowel sounds are present and normal. EXTREMITIES: No edema. No calf swelling. No tenderness. No acute ischemia. CENTRAL NERVOUS SYSTEM: Essentially unchanged. DIAGNOSTIC DATA: Available diagnostic data reviewed. WBC count yesterday was 38,000; hemoglobin 10.1; hematocrit 31.2; platelet 108. Telemetry monitoring shows episodes of tachycardia. ASSESSMENT: Pain management and hospitalist's intervention noted and appreciated. Overall, the patient's general medical condition, although hemodynamically stable, he remains hypotensive. Long-term prognosis remains poor due to metastatic hepatocellular carcinoma. PLAN: As ordered. Case and plan discussed with the patient. Cheikh Lazaro MD
[2017-08-04] MEDS: Piperacillin/Tazobact 3.375 GM in Sodium Chloride 0.9% 100 ML IVPB SCH ×3 (00:41→16:09)
[2017-08-04] MEDS: Enoxaparin 40 mg Syringe SC SCH (08:35)
[2017-08-04] MEDS: Lidocaine 5% Patch TD SCH (08:35)
[2017-08-04] MEDS: Naproxen 500 MG TAB PO SCH ×2 (08:36→23:45)
[2017-08-04] MEDS: Pantoprazole 40 mg EC Tab PO SCH (08:36)
[2017-08-04] MEDS: Megestrol Acetate 40 mg/ml Cup PO SCH (08:36)
--- NOTE | 2017-08-04 13:25 | CP.PCM.PN ---
Subjective - Date & Time of Evaluation Date of Evaluation: 08/03/17 Time of Evaluation: 14:00 - Subjective Subjective: Has abdominal bloating For palliative radiotherapy evaluation Saturday at [facility] Objective - Vital Signs/Intake and Output Vital Signs (last 24 hours): Temp Pulse Resp BP Pulse Ox 98.3 F 129 H 20 76/59 L 94 L 08/04/17 12:00 08/04/17 12:00 08/04/17 12:00 08/04/17 12:00 08/04/17 12:00 - Medications Medications: Current Medications Aspirin (Ecotrin) 81 mg PO DAILY [facility] Last Admin: 08/04/17 08:35 Dose: Not Given Cyclobenzaprine HCl (Flexeril) 5 mg PO HS [facility] Last Admin: 08/03/17 21:43 Dose: 5 mg Cyclobenzaprine HCl (Flexeril) 5 mg PO TID PRN PRN Reason: Muscle spasm Last Admin: 08/03/17 00:32 Dose: 5 mg Docusate Sodium (Colace) 200 mg PO DAILY [facility] Last Admin: 08/04/17 08:34 Dose: Not Given Enoxaparin Sodium (Lovenox) 40 mg SC DAILY [facility] PRN Reason: Protocol Last Admin: 08/04/17 08:35 Dose: 40 mg Hydromorphone HCl (Dilaudid) 1 mg IVP Q3 PRN PRN Reason: Pain, severe (8-10) Last Admin: 08/03/17 18:00 Dose: 1 mg Piperacillin Sod/Tazobactam (Sod 3.375 gm/ Sodium Chloride) 100 mls @ 100 mls/ hr IVPB Q8 [facility] Last Admin: 08/04/17 08:33 Dose: 100 mls/hr Vancomycin HCl 500 mg/ Sodium (Chloride) 100 mls @ 100 mls/hr IVPB Q12 [facility] Last Admin: 08/04/17 08:33 Dose: 100 mls/hr Lidocaine (Lidoderm) 1 ea TD DAILY [facility] Last Admin: 08/04/17 08:35 Dose: 1 ea Megestrol Acetate (Megace) 400 mg PO DAILY [facility] Last Admin: 08/04/17 08:36 Dose: Not Given Naproxen (Naproxen) 500 mg PO DAILY PRN PRN Reason: Pain, moderate (4-7) Last Admin: 07/27/17 13:24 Dose: 500 mg Naproxen (Naproxen) 500 mg PO Q12 [facility] Last Admin: 08/04/17 08:36 Dose: Not Given Ondansetron HCl (Zofran Inj) 4 mg IVP Q6 PRN PRN Reason: Nausea/Vomiting Last Admin: 08/01/17 09:02 Dose: 4 mg Pantoprazole Sodium (Protonix Ec Tab) 40 mg PO DAILY [facility] Last Admin: 08/04/17 08:36 Dose: Not Given Sennosides (Senokot Tab) 17.2 mg PO HS [facility] Last Admin: 08/03/17 21:46 Dose: Not Given Simethicone (Mylicon Chew Tab) 80 mg PO TID PRN PRN Reason: Flatulence Last Admin: 08/02/17 12:19 Dose: 80 mg - Labs Labs: 08/02/17 05:30 08/02/17 05:30 PT 15.7 Seconds (9.8-13.1) H 07/31/17 06:30 INR 1.5 (0.9-1.2) H 07/31/17 06:30 APTT 32.5 Seconds (25.6-37.1) 07/31/17 06:30 - Head Exam Head Exam: ATRAUMATIC - Eye Exam Eye Exam: Normal appearance - ENT Exam ENT Exam: Mucous Membranes Dry - Respiratory Exam Respiratory Exam: NORMAL BREATHING PATTERN - Cardiovascular Exam Cardiovascular Exam: +S1, +S2 - GI/Abdominal Exam GI & Abdominal Exam: Normal Bowel Sounds - Extremities Exam Extremities Exam: Normal Inspection Assessment and Plan (1) Metastatic disease Assessment & Plan: prelim poorly differentiated carcinoma palliative radiotherapy evaluation Status: Acute (2) Leukocytosis Assessment & Plan: on antibiotics likely reactive Status: Acute (3) Anemia Assessment & Plan: anemia of chronic disease Status: Acute
--- NOTE | 2017-08-04 13:41 | PN ---
DATE: 08/04/2017 SUBJECTIVE: The patient is seen and examined. Interim events noted. The patient remains in Progressive Care Unit on telemetry monitoring. Neck and back pain is much improved with Lidoderm patch, but still has abdominal discomfort. No chest pain. No shortness of breath. PHYSICAL EXAMINATION GENERAL: The patient is in no acute distress. VITAL SIGNS: Stable. HEART: S1 and S2, normal and regular. LUNGS: Good bilateral air entry. ABDOMEN: Soft and nontender. No sign of acute abdomen. No guarding. No rigidity. No rebound. Bowel sounds are present, normal. EXTREMITIES: No edema. No calf swelling. No tenderness. No acute ischemia. CENTRAL NERVOUS SYSTEM: Essentially unchanged. DIAGNOSTIC DATA: Available diagnostic data reviewed. Telemetry monitoring does not reveal significant arrhythmia. ASSESSMENT AND PLAN: Overall, the patient's general medical condition is stable, although long-term prognosis remains poor and guarded. Cheikh Lazaro MD
[2017-08-04] MEDS ORDERED: Sodium Chloride 0.9% 1,000 ML IV SCH ×3 (14:45→23:45)
--- NOTE | 2017-08-04 14:48 | PCM.RRT ---
INTERMEDIATE ACCOUNTANT Nurse Assessment - Situation INTERMEDIATE ACCOUNTANT Responder Arrival Time: 14:22 Location: [facility] Room Number: 417-2 INTERMEDIATE ACCOUNTANT Reason for Call: Tachycardia, Hypotension INTERMEDIATE ACCOUNTANT Called By: RN - IV IV Inserted during INTERMEDIATE ACCOUNTANT?: No - Respiratory Oxygen Delivery Method: Nasal Cannula Received Nebulizer Treatments: Yes Was the Patient Ventilated with Bag/Mask 100% O2?: No Secretions Suctioned?: No Was the Patient Intubated?: No Was the Patient Placed on a Ventilator?: No - Diagnostic Test Ordered EKG: No Chest X-Ray: No CT Scan: No - Stat Labs Ordered INTERMEDIATE ACCOUNTANT Stat Labs Ordered: CBC, BMP, LACTIC ACID CPR started during INTERMEDIATE ACCOUNTANT?: No - Vital Signs Vital Signs: Rapid Response Vital Sign Blood Pressure 76/64 Pulse Rate 136 Respiratory Rate 25 Temperature 97.8 F Oxygen Saturation 93 - [place] Coma Scale Coma Scale Eye Opening: Spontaneous Coma Scale Motor: Obeys Commands Movement Coma Scale Verbal: Oriented Coma Scale Total: 15 - Time INTERMEDIATE ACCOUNTANT Ended Time INTERMEDIATE ACCOUNTANT Ended: 14:41 - Vital Signs at end of INTERMEDIATE ACCOUNTANT Vital Signs at end of INTERMEDIATE ACCOUNTANT: Rapid Response End Vital Sign Blood Pressure 92/56 Pulse Rate 125 Respiratory Rate 26 Temperature 97.9 F O2 Sat by Pulse Oximetry 95 - Recommendations INTERMEDIATE ACCOUNTANT Level of Care Recommendations: Remain in current setting - Neurological Status (Select all that apply): Alert, Oriented, Verbal, Follows Commands - Respiratory Oxygen Delivery Method: Non Rebreather @% (50%) - Constitutional Appears: Non-toxic - Head Head Exam: ATRAUMATIC, NORMOCEPHALIC - Eyes Eye Exam: Normal appearance - Respiratory Exam Respiratory Exam: Clear to Ausculation Bilateral. absent: Rales, Rhonchi - Cardiovascular Exam Cardiovascular Exam: Tachycardia, REGULAR RHYTHM, +S1, +S2 - GI/Abdominal Exam GI & Abdominal Exam: Soft, Normal Bowel Sounds. absent: Tenderness - Neurological Exam Neurological Exam: Alert, Oriented x3 - Extremities Exam Extremities Exam: Normal Capillary Refill, Normal Inspection. absent: Pedal Edema Plan - Assessment of Findings&Treatment Plan INTERMEDIATE ACCOUNTANT is called for a 61 yo, f, PMhx/o Hep B HCC with bone mets who was noted by nurse with hypotension and tachycardia. On arrival response patient lying down breathing by NC 4 l with mild SOB, alert, responsive, able to talk in full sentences, AAOx 3. As per nurse patient has not had good intake of fluids and breakfast today. Initial VS BP:76/64 HR: 136 b/min RR: 25 resp/min O2 sat: 93% after 10 min in IV fluids BP improved to 109/60 HR:115 b/min O2 sat 98 Assessment/Plan: 1) Hypotension secondary to dehydration -BP:76/64 -as per patient her BP baseline is 90-95/60 -IF fluids NS 1L bolus -after 1 l NS switch to D5% 1/2 NS due to patient has not been eating to prevent hypoglycemia. -Non-rebreather mask 50 % -cbc, cmp, lactic acid 2) Tachycardia reflex secondary to hypotension and dehydration f/u cbc, cmp, lactic acid
[2017-08-04] MEDS ORDERED: Dextrose 5%/0.45% NS 1,000 ML IV SCH (15:18)
[2017-08-04 19:01] LABS: HEMATOCRIT 33.9 % (34.0-47.0); MEAN CELL VOLUME 90.9 fl (81.0-99.0); MEAN CORPUSCULAR HEMOGLOBIN 27.7 pg (27.0-31.0); MEAN CORPUSCULAR HGB CONC 30.5 g/dL (33.0-37.0); RED CELL DISTRIBUTION WIDTH 16.9 % (11.5-14.5); WHITE BLOOD COUNT 33.6 K/uL (4.8-10.8)
[2017-08-04 19:13] LABS: ALB/GLOB RATIO 0.6 (1.0-2.1); BILIRUBIN,TOTAL 4.3 mg/dl (0.2-1.3); CALCIUM 9.1 mg/dL (8.4-10.2)
[2017-08-04 19:15] LABS: POTASSIUM 5.3 MMOL/L (3.6-5.0)
[2017-08-04] MEDS ORDERED: Naloxone 0.4 mg/ml Inj (Adult) IVP STA (20:04)
[2017-08-04 20:13] LABS: ABG ALLEN TEST YES; ARTERIAL BLOOD GAS HCO3 14.8 mmol/L (21-28); ARTERIAL BLOOD GAS PH 7.25 (7.35-7.45); ARTERIAL BLOOD GAS PO2 68 mm/Hg (80-100)
--- NOTE | 2017-08-04 20:34 | PCM.RRT ---
INFORMATION SECURITY CONSULTANT Nurse Assessment - Situation INFORMATION SECURITY CONSULTANT Responder Arrival Time: 21:51 Location: [facility] Room Number: 417-2 INFORMATION SECURITY CONSULTANT Reason for Call: Tachycardia, Hypotension INFORMATION SECURITY CONSULTANT Called By: RN - IV IV Inserted during INFORMATION SECURITY CONSULTANT?: No - Respiratory Oxygen Delivery Method: Nasal Cannula Received Nebulizer Treatments: Yes Was the Patient Ventilated with Bag/Mask 100% O2?: No Secretions Suctioned?: No Was the Patient Intubated?: No Was the Patient Placed on a Ventilator?: No - Diagnostic Test Ordered EKG: No Chest X-Ray: No CT Scan: No - Stat Labs Ordered INFORMATION SECURITY CONSULTANT Stat Labs Ordered: CBC, BMP, LACTIC ACID CPR started during INFORMATION SECURITY CONSULTANT?: No - Vital Signs Vital Signs: Rapid Response Vital Sign Blood Pressure 76/64 Pulse Rate 136 Respiratory Rate 25 Temperature 97.8 F Oxygen Saturation 93 - Time INFORMATION SECURITY CONSULTANT Ended Time INFORMATION SECURITY CONSULTANT Ended: 14:41 - Vital Signs at end of INFORMATION SECURITY CONSULTANT Vital Signs at end of INFORMATION SECURITY CONSULTANT: Rapid Response End Vital Sign Blood Pressure 92/56 Pulse Rate 125 Respiratory Rate 26 Temperature 97.9 F O2 Sat by Pulse Oximetry 95 - Recommendations INFORMATION SECURITY CONSULTANT Level of Care Recommendations: Remain in current setting - Respiratory Oxygen Delivery Method: Non Rebreather @% (50%)
--- NOTE | 2017-08-04 20:56 | PCM.RRT ---
<Alonso Lamb - Last Filed: 08/04/17 20:54> VENEER TAPING MACHINE OPERATOR Nurse Assessment - Situation VENEER TAPING MACHINE OPERATOR Responder Arrival Time: 19:51 Location: [facility] Room Number: 417-2 VENEER TAPING MACHINE OPERATOR Reason for Call: Tachycardia, Hypotension VENEER TAPING MACHINE OPERATOR Called By: RN - IV IV Inserted during VENEER TAPING MACHINE OPERATOR?: Yes IV Fluids Initiated During VENEER TAPING MACHINE OPERATOR?: bolus NS New IV Insertion Tolerance:: Good - Respiratory Oxygen Delivery Method: Nasal Cannula, Venturi Mask Received Nebulizer Treatments: No Was the Patient Ventilated with Bag/Mask 100% O2?: No Secretions Suctioned?: No Was the Patient Intubated?: No Was the Patient Placed on a Ventilator?: No - Diagnostic Test Ordered EKG: Yes Chest X-Ray: Yes CT Scan: No - Stat Labs Ordered VENEER TAPING MACHINE OPERATOR Stat Labs Ordered: ABG CPR started during VENEER TAPING MACHINE OPERATOR?: No - Vital Signs Vital Signs: Rapid Response Vital Sign Blood Pressure 76/64 Pulse Rate 136 Respiratory Rate 25 Temperature 97.8 F Oxygen Saturation 93 - Time VENEER TAPING MACHINE OPERATOR Ended Time VENEER TAPING MACHINE OPERATOR Ended: 20:55 - Vital Signs at end of VENEER TAPING MACHINE OPERATOR Vital Signs at end of VENEER TAPING MACHINE OPERATOR: Rapid Response End Vital Sign Blood Pressure 92/56 Pulse Rate 125 Respiratory Rate 26 Temperature 97.9 F O2 Sat by Pulse Oximetry 95 - Recommendations VENEER TAPING MACHINE OPERATOR Level of Care Recommendations: Transfer to ICU I.Reason for VENEER TAPING MACHINE OPERATOR - A) Acute Change in Patient: (Select all that apply): Acute change in SBP below - Neurological Status (Select all that apply): Alert, Responsive, Verbal - Respiratory Oxygen Delivery Method: Venturi Mask @% (50% O2) - Head Head Exam: ATRAUMATIC - Respiratory Exam Respiratory Exam: Respiratory Distress (mild) - Cardiovascular Exam Cardiovascular Exam: Tachycardia - GI/Abdominal Exam GI & Abdominal Exam: Distended - Neurological Exam Neurological Exam: Alert, Awake - Extremities Exam Extremities Exam: absent: Calf Tenderness Plan - Assessment of Findings&Treatment Plan VENEER TAPING MACHINE OPERATOR is called for a 61 y/o woman w/ pmh of Hep B, HCC with bone mets who was noted by nurse with hypotension and tachycardia. On arrival response patient lying down breathing by NC 5 L with mild SOB but less responsive compared to baseline. Patient was given narcan and immediately became alert, responsive, able to talk in full sentences, AAOx 3. Patient had VENEER TAPING MACHINE OPERATOR called for similar reasons this afternoon. Initial VS BP: 81/62 mmHg HR: 123 b/min RR: 25 resp/min O2 sat: 91% after 10 min in IV fluids BP improved to 114/80 HR:120 b/min O2 sat 94% Assessment/Plan: 1) Hypotension secondary to dehydration -BP:81/62 -as per patient her BP baseline is 90-95/60 -given narcan 0.4mg IVP stat -IF fluids NS 1L bolus -on 1 L D5% 1/2 NS due to patient has not been eating to prevent hypoglycemia. -Venti mask 50 % -ABG ordered -CXR ordered -EKG ordered -transfer to ICU in case pressor support needed 2) Tachycardia reflex secondary to hypotension and dehydration f/u ABG, CXR <Donnie Randall - Last Filed: 08/05/17 06:08> VENEER TAPING MACHINE OPERATOR Nurse Assessment - Vital Signs Vital Signs: Rapid Response Vital Sign Blood Pressure 115/58 Pulse Rate 126 Respiratory Rate 14 Temperature 97.8 F Oxygen Saturation 92 - Vital Signs at end of VENEER TAPING MACHINE OPERATOR Vital Signs at end of VENEER TAPING MACHINE OPERATOR: Rapid Response End Vital Sign Blood Pressure 79/52 Pulse Rate 103 Respiratory Rate 26 Temperature 97.9 F O2 Sat by Pulse Oximetry 95 Attending/Attestation - Attestation I have personally seen and examined this patient.: No I have fully participated in the care of the patient.: No I have reviewed all pertinent clinical information, including history, physical exam and plan: No Notes (Text): 08/05/17 06:00 I saw and examined this patient shoulder to shoulder with Dr Lamb. the assessment and plan mentioned, represent my direct input. The VENEER TAPING MACHINE OPERATOR was called because the patient was Hypotensive and with Altered Mental Status with eyes open but not responding to verbal status and having pupols pin pointed. I&P #. AMS due to Metabolic and Toxic Encephalopathy. - Narcan was given and the patient became fully alert and oriented #. Hypotension with sepsis - IV Fluids 1 Liter of NS given with little increase in BP - Transfer Pte to ICU for IV Pressors to be given #. Metastatic Hepatocellular Carcinoma - Scheduled at [place] for XRT Total Critical care time25 minutes Donnie Randall MD
--- NOTE | 2017-08-04 23:57 | CP.PCM.CON ---
History of Present Illness - History of Present Illness History of Present Illness: Attending: Emerson Dumont MD Reason for Consult: Crtical care management Chief Complaint: AMS/ Hypotension The Patient was seen and examined in the Telemetry unit HPI: The hx was obtained from the patient's and review of the Medical Records. She is a 61 years old female with hx of Hepatitis B, who was admitted to the [facility] on 07/26/17 with Abdominal pain and Diagnosed with Metastatic Hepatocellular carcinoma and severe sepsis. Rapid Response was called because the patient was noted not responding to verbal stimuli and minimally to painful stimuli.shaking of shoulders. She was Tachycardic and Hypotensive with BP 81/62mmHg. PMH: Hepatitis B; PSH: No Surgical Hx SH: Former smoker; Drinks Alcohol socially; live with FH: Mother with Hepatitis B allergies: NKDA Review of Systems - Review of Systems Review of Systems: The Review of systems was limited because of Change in Mental status of the The patent. Past Patient History - Infectious Disease Hx of Infectious Diseases: None - Past Medical History & Family History Past Medical History?: Yes - Past Social History Smoking Status: Former Smoker Chewing Tobacco Use: No Cigar Use: No Alcohol: Social Drugs: Denies Home Situation {Lives}: With Family - CARDIAC Hx Hypertension: Yes - PULMONARY Hx Respiratory Disorders: Yes Hx Bronchitis: Yes - NEUROLOGICAL Hx Neurological Disorder: No - HEENT Hx HEENT Problems: No - RENAL Hx Chronic Kidney Disease: No - ENDOCRINE/METABOLIC Hx Endocrine Disorders: No - HEMATOLOGICAL/ONCOLOGICAL Hx Blood Disorders: Yes Hx Hepatitis B: Yes (28 yrs ago) - INTEGUMENTARY Hx Dermatological Problems: No - MUSCULOSKELETAL/RHEUMATOLOGICAL Hx Musculoskeletal Disorders: No Hx Falls: No - GASTROINTESTINAL Hx Gastrointestinal Disorders: No - GENITOURINARY/GYNECOLOGICAL Hx Genitourinary Disorders: No - PSYCHIATRIC Hx Psychophysiologic Disorder: No Hx Substance Use: No - SURGICAL HISTORY Hx Surgeries: Yes Other/Comment: gum surgery 28 yrs ago - ANESTHESIA Hx Anesthesia: Yes Hx Anesthesia Reactions: No Hx Malignant Hyperthermia: No Has any member of the family had a problem w/ anesthesia?: No Meds Allergies/Adverse Reactions: Allergies Allergy/AdvReac Type Severity Reaction Status Date / Time No Known Allergies Allergy Verified 07/26/17 11:03 - Medications Medications: Current Medications Aspirin (Ecotrin) 81 mg PO DAILY [facility] Last Admin: 08/04/17 08:35 Dose: Not Given Cyclobenzaprine HCl (Flexeril) 5 mg PO HS [facility] Last Admin: 08/04/17 23:45 Dose: Not Given Cyclobenzaprine HCl (Flexeril) 5 mg PO TID PRN PRN Reason: Muscle spasm Last Admin: 08/03/17 00:32 Dose: 5 mg Docusate Sodium (Colace) 200 mg PO DAILY [facility] Last Admin: 08/04/17 08:34 Dose: Not Given Enoxaparin Sodium (Lovenox) 40 mg SC DAILY [facility] PRN Reason: Protocol Last Admin: 08/04/17 08:35 Dose: 40 mg Hydromorphone HCl (Dilaudid) 1 mg IVP Q3 PRN PRN Reason: Pain, severe (8-10) Last Admin: 08/04/17 16:08 Dose: 1 mg Piperacillin Sod/Tazobactam (Sod 3.375 gm/ Sodium Chloride) 100 mls @ 100 mls/ hr IVPB Q8 [facility] Last Admin: 08/04/17 16:09 Dose: 100 mls/hr Vancomycin HCl 500 mg/ Sodium (Chloride) 100 mls @ 100 mls/hr IVPB Q12 [facility] Last Admin: 08/04/17 22:18 Dose: 100 mls/hr Sodium Chloride (Sodium Chloride 0.9%) 1,000 mls @ 0 mls/hr IV .Q0M [facility] PRN Reason: As Directed Stop: 08/05/17 14:34 Sodium Chloride (Sodium Chloride 0.9%) 1,000 mls @ 125 mls/hr IV .Q8H [facility] Stop: 08/05/17 23:45 Lidocaine (Lidoderm) 1 ea TD DAILY [facility] Last Admin: 08/04/17 08:35 Dose: 1 ea Megestrol Acetate (Megace) 400 mg PO DAILY [facility] Last Admin: 08/04/17 08:36 Dose: Not Given Naproxen (Naproxen) 500 mg PO DAILY PRN PRN Reason: Pain, moderate (4-7) Last Admin: 07/27/17 13:24 Dose: 500 mg Ondansetron HCl (Zofran Inj) 4 mg IVP Q6 PRN PRN Reason: Nausea/Vomiting Last Admin: 08/01/17 09:02 Dose: 4 mg Pantoprazole Sodium (Protonix Ec Tab) 40 mg PO DAILY [facility] Last Admin: 08/04/17 08:36 Dose: Not Given Sennosides (Senokot Tab) 17.2 mg PO HS [facility] Last Admin: 08/04/17 23:45 Dose: Not Given Simethicone (Mylicon Chew Tab) 80 mg PO TID PRN PRN Reason: Flatulence Last Admin: 08/02/17 12:19 Dose: 80 mg Physical Exam - Constitutional Additional comments: Mild to moderate respiratory distress - Head Exam Head Exam: ATRAUMATIC, NORMOCEPHALIC - Eye Exam Additional comments: Pupils Pin pointed and not reacting to light. - ENT Exam ENT Exam: Normal External Ear Exam - Neck Exam Neck exam: Positive for: Full Rom. Negative for: Lymphadenopathy, Tenderness - Respiratory Exam Respiratory Exam: Clear to Auscultation Bilateral. absent: Rales, Rhonchi, Wheezes - Cardiovascular Exam Cardiovascular Exam: REGULAR RHYTHM, RRR, +S1, +S2 - GI/Abdominal Exam GI & Abdominal Exam: Tenderness. absent: Normal Bowel Sounds, Soft Additional comments: Full, Soft, normal bowel sounds - Rectal Exam Rectal Exam: Deferred - Extremities Exam Extremities exam: Positive for: normal inspection. Negative for: joint swelling , pedal edema - Back Exam Back exam: NORMAL INSPECTION - Neurological Exam Neurological exam: Reflexes Normal Additional comments: No Focal neurological weakness - Psychiatric Exam Psychiatric exam: Flat Affect - Skin Skin Exam: Dry, Normal Color, Warm Results - Vital Signs Recent Vital Signs: Last Vital Signs Temp 97.8 F 08/04/17 20:39 Pulse 117 H 08/04/17 22:00 Resp 19 08/04/17 22:00 BP 95/67 L 08/04/17 22:00 Pulse Ox 100 08/04/17 22:00 - Labs Result Diagrams: 08/04/17 18:53 08/04/17 18:53 Labs: Laboratory Results - last 24 hr 08/04/17 08/04/17 08/04/17 18:53 18:53 18:53 WBC 33.6 H RBC 3.73 L Hgb 10.3 L Hct 33.9 L MCV 90.9 D MCH 27.7 MCHC 30.5 L RDW 16.9 H Plt Count 124 L D pCO2 pO2 HCO3 ABG pH ABG Total CO2 ABG O2 Saturation ABG Base Excess Juarez Test ABG Potassium A-a O2 Difference Glucose Lactate FiO2 Blood Gas Comments Crit Value Called To Crit Value Called By Crit Value Read Back Blood Gas Notified Time Sodium 142 Potassium 5.3 H Chloride 109 H Carbon Dioxide 14 L Anion Gap 24 H BUN 46 H Creatinine 1.7 H Est GFR ( Amer) 37 Est GFR (Non-Af Amer) 31 POC Glucose (mg/dL) Random Glucose 88 Lactic Acid 8.0 H* Calcium 9.1 Total Bilirubin 4.3 H AST 724 H D ALT 186 H D Alkaline Phosphatase 455 H Total Protein 6.0 L Albumin 2.3 L Globulin 3.7 Albumin/Globulin Ratio 0.6 L Arterial Blood Potassium 08/04/17 08/04/17 20:00 20:02 WBC RBC Hgb Hct MCV MCH MCHC RDW Plt Count pCO2 30 L pO2 68 L HCO3 14.8 L ABG pH 7.25 L ABG Total CO2 14.1 L ABG O2 Saturation 94.3 L ABG Base Excess -12.8 L Juarez Test Yes ABG Potassium 5.0 A-a O2 Difference 180.0 Glucose 111 H Lactate 7.0 H* FiO2 40.0 Blood Gas Comments 5l nc Crit Value Called To Dr vahid doss Crit Value Called By Samy Crit Value Read Back Y Blood Gas Notified Time 2012 Sodium 136.0 Potassium Chloride 108.0 H Carbon Dioxide Anion Gap BUN Creatinine Est GFR ( Amer) Est GFR (Non-Af Amer) POC Glucose (mg/dL) 110 Random Glucose Lactic Acid Calcium Total Bilirubin AST ALT Alkaline Phosphatase Total Protein Albumin Globulin Albumin/Globulin Ratio Arterial Blood Potassium 5.0 - Imaging and Cardiology CT scan - abdomen Status: Report reviewed by me Additional comment: Signs of Hepato cellular carcinoma with cirrhosis of the liver right pleural effusion with compressive Atelectas is at the right base. Assessment & Plan - Assessment and Plan (Free Text) Assessment: # AMS #. Septic Shock #. Lactic Acidosis #; Metastatic Hepatocellular Carcinoma #. Acute Kidney injury Plan: 61 years old female with hx of Hepatitis B, who was admitted to the [facility] on 07/26/17 with Abdominal pain and Diagnosed with Metastatic Hepatocellular carcinoma and severe sepsis. Rapid Response was called for AMS and Hypotnsion. IV Bolus NS and Narcan given and patient became awake and alert. BP still Hypotensive. #. AMS due to Metabolic and Toxic encephalopathy. because of the hx of receiving Dilaudid, Narcan was given and became fully awake.. Dilaudid will have to be held or delivered in smaller doses #. Septic Shock - Transfer to ICU for Srinivasa Synephrine - IV fluid NS 2 bolud of NS given with blood pressure still low - continue Vancomycin and Zosyn #. Lactic Acidosis due to low blood pressures and sepsis - IV Fluids #; Metastatic Hepatocellular Carcinoma - Dr Hurst Hem/Onc on consult #. Acute Kidney injury - IV fluids #. Code Status: Full Donnie Randall MD Attemp at Insertion of Right femoral central line was unsuccessful; - Date & Time Date: 08/04/17 Time: 23:57
[2017-08-05] MEDS ORDERED: Sodium Chloride 0.9% 500 ML IV ONE (00:16)
[2017-08-05] MEDS: Piperacillin/Tazobact 3.375 GM in Sodium Chloride 0.9% 100 ML IVPB SCH ×3 (01:06→17:25)
[2017-08-05 05:39] LABS: BASO # 0.1 K/uL (0.0-0.2); BASO % 0.3 % (0.0-2.0); EOS # 0.2 K/uL (0.0-0.7); EOS % 0.4 % (0.0-4.0); HEMATOCRIT 32.1 % (34.0-47.0); LYMPH # 3.5 K/uL (1.0-4.3); MEAN CELL VOLUME 90.3 fl (81.0-99.0); MEAN CORPUSCULAR HEMOGLOBIN 27.9 pg (27.0-31.0); MEAN CORPUSCULAR HGB CONC 30.9 g/dL (33.0-37.0); MEAN PLATELET VOLUME 10.4 fl (7.2-11.7); MONO # 1.9 K/uL (0.0-0.8); NEUT # 33.2 K/uL (1.8-7.0); NEUT % 85.3 % (50.0-75.0); NRBC % 11.6 % (0.0-0.0); PLATELET COUNT 128 K/uL (130-400)
[2017-08-05 05:41] LABS: ALB/GLOB RATIO 0.6 (1.0-2.1); CALCIUM 8.4 mg/dL (8.4-10.2); TOTAL PROTEIN 5.8 G/DL (6.3-8.2)
[2017-08-05 05:48] LABS: WHITE BLOOD COUNT 38.9 K/uL (4.8-10.8)
[2017-08-05 05:52] LABS: POTASSIUM 5.1 MMOL/L (3.6-5.0)
--- NOTE | 2017-08-05 06:44 | CP.PCM.PCO ---
Physician Communication Note - Physician Communication Note Physician Communication Note: This patient is unstable to be transferred to [place].
[2017-08-05] MEDS ORDERED: Midazolam 2 MG/2 ML VIAL ONE (07:19)
[2017-08-05] MEDS ORDERED: Propofol 10 mg/ml 0 MG/0 ML VIAL ONE (07:21)
[2017-08-05] MEDS ORDERED: Chlorhexidine Gluconate 1 APPL/PKT TP ONE (08:05)
--- NOTE | 2017-08-05 08:09 | CP.CCUPN ---
CCU Subjective - Physician Review Events Since Last Encounter (Free Text): 08/05/17 08:35 The patient was Seen and examined by me at the bedside, Medical records reviewed and Management issues were discussed and formulated with the house staff. 61 Years old Former smoker Female with PMHx of Hepatitis B and Metastatic Hepatocellular Carcinoma Who initially presents to the emergency department with a right upper quadrant abdominal pain and shortness of breath x2 weeks. US showed complex left liver mass, now S/p US guided left liver mass biopsy by IR She was transferred to ICU last night after [employer] called for Hypotension secondary to dehydration and sever sepsis Pt on broad spectrum antibiotics and received total 3L IV fluids overnight. Upon my arrival this morning she is hypotensive, lethargic, pulse weak, and Pt is cold and clammy. Under complete aseptic prelusions, central line was placed in Right femoral vein , Pt tolerated procedure well. and she was immediately started pn vasopressors. Intial plan was Low threshold for intubation and mechanical ventilation at the earliest sign of worsening respiratory status BP improved, however mental status remains poor, Pt Lethargic, but responds to verbal stimuli, and So the decision was made to intubate Patient was intubated by Anesthesia with ET 7.5, 27 at the lip level. Vent sitting AC 14 450 PEEP-5 [id number] 08/05/17 17:06 Pt remains hypotensive and is hemodynamically unstable, multiple attempts for A line placement was unsuccessful, She currently on Levophed and Vasopressin, Full vent support PRN IV Ativan Pt's current status is discussed with pt's family CCU Objective - Vital Signs / Intake & Output Vital Signs (Last 4 hours): Vital Signs Pulse Resp BP Pulse Ox 08/05/17 06:00 134 H 34 H 97/46 L 92 L Intake and Output (Last 8hrs): Intake & Output 08/04/17 08/05/17 08/05/17 22:59 06:59 14:59 Intake Total 1700 3010 Output Total 600 Balance 1700 2410 Intake: IV 1400 2750 Intake, Piggyback 300 200 Oral 60 Output: Urine 600 Urine, Voided 600 Other: # Voids Urine, Voided 800 # Bowel Movements 1 1 - Physical Exam Physical Exam Limitations: Positive for: Altered Mental Status, Clinical Condition Head: Positive for: Atraumatic, Normocephalic. Negative for: Tenderness, Contusion, Swelling Pupils: Positive for: PERRL. Negative for: Sluggish, Non-Reactive, Pinpoint Extroacular Muscles: Positive for: EOMI. Negative for: Gaze Palsy, Entrapment Ears: Positive for: Normal Mouth: Positive for: Dry. Negative for: Drooling Pharnyx: Positive for: Normal. Negative for: ERYTHEMA Nose (External): Positive for: Atraumatic. Negative for: Abrasion Neck: Positive for: Normal Range of Motion, Trachea Midline. Negative for: Meningeal Signs, MIDLINE TENDERNESS, Paraspinal Tenderness, JVD, Lymphadenopathy , Bruit, Other Respiratory/Chest: Positive for: Decreased Breath Sounds, Rales, Rhonchi, Tachypneic. Negative for: Respiratory Distress, Accessory Muscle Use, Wheezes, Tender to Palpation Cardiovascular: Positive for: Regular Rate and Rhythm, Peripheal Pulses Present , Tachycardic. Negative for: Murmurs, Irregular Rhythm Abdomen: Positive for: Distention, Normal Bowel Sounds. Negative for: Tenderness, Peritoneal Signs Upper Extremity: Positive for: Edema, Normal ROM, Other (Cold and clammy). Negative for: Normal Inspection, Cyanosis, Capillary Refill < 2s Lower Extremity: Positive for: Edema, NORMAL PULSES, Normal ROM, Swelling, Other (Cold and clammy). Negative for: Normal Inspection, CALF TENDERNESS, Cyanosis, Capillary Refill < 2 s Skin: Negative for: Rashes Psychiatric: Positive for: Lethargic - Medications Active Medications: Active Medications Generic Name Dose Route Start Last Admin Trade Name Freq PRN Reason Stop Dose Admin Aspirin 81 mg 08/02/17 09:00 08/04/17 08:35 Ecotrin PO Not Given DAILY SERGIO Cyclobenzaprine HCl 5 mg 07/26/17 22:00 08/04/17 23:45 Flexeril PO Not Given HS SERGIO Cyclobenzaprine HCl 5 mg 08/02/17 11:21 08/03/17 00:32 Flexeril PO 5 mg TID PRN Administration Muscle spasm Docusate Sodium 200 mg 07/28/17 09:00 08/04/17 08:34 Colace PO Not Given DAILY SERGIO Enoxaparin Sodium 40 mg 08/02/17 09:00 08/04/17 08:35 Lovenox SC 40 mg DAILY SERGIO Administration Protocol Hydromorphone HCl 1 mg 08/02/17 16:21 08/04/17 16:08 Dilaudid IVP 1 mg Q3 PRN Administration Pain, severe (8-10) Piperacillin Sod/Tazobactam 100 mls @ 100 mls/hr 07/27/17 01:00 08/05/17 01: 06 Sod 3.375 gm/ Sodium Chloride IVPB 100 mls/hr Q8 SERGIO Administration Vancomycin HCl 500 mg/ Sodium 100 mls @ 100 mls/hr 07/27/17 21:00 08/04/17 22 :18 Chloride IVPB 100 mls/hr Q12 SERGIO Administration Sodium Chloride 1,000 mls @ 0 mls/hr 08/04/17 14:45 Sodium Chloride 0.9% IV 08/05/17 14:34 .Q0M SERGIO As Directed Sodium Chloride 1,000 mls @ 125 mls/hr 08/04/17 23:45 08/04/17 23:45 Sodium Chloride 0.9% IV 08/05/17 23:45 125 mls/hr .Q8H SERGIO Administration Phenylephrine HCl 10 mg/ 251 mls @ 30.12 mls/hr 08/05/17 00:15 Sodium Chloride IV .Q8H20M SERGIO Protocol 20 MCG/MIN Vasopressin 100 units/ Sodium 105 mls @ 1.89 mls/hr 08/05/17 08:15 Chloride IV .Q24H SERGIO Protocol 0.03 UNITS/MIN Lidocaine 1 ea 08/03/17 09:00 08/04/17 08:35 Lidoderm TD 1 ea DAILY SERGIO Administration Megestrol Acetate 400 mg 08/01/17 11:45 08/04/17 08:36 Megace PO Not Given DAILY SERGIO Naproxen 500 mg 07/26/17 21:01 07/27/17 13:24 Naproxen PO 500 mg DAILY PRN Administration Pain, moderate (4-7) Ondansetron HCl 4 mg 07/26/17 15:29 08/01/17 09:02 Zofran Inj IVP 4 mg Q6 PRN Administration Nausea/Vomiting Pantoprazole Sodium 40 mg 07/27/17 09:00 08/04/17 08:36 Protonix Ec Tab PO Not Given DAILY SERGIO Sennosides 17.2 mg 07/27/17 22:00 08/04/17 23:45 Senokot Tab PO Not Given HS SERGIO Simethicone 80 mg 08/02/17 11:18 08/02/17 12:19 Mylicon Chew Tab PO 80 mg TID PRN Administration Flatulence - Patient Studies Lab Studies: Lab Studies 08/05/17 08/05/17 08/04/17 Range/Units 04:30 04:30 20:02 WBC 38.9 H* (4.8-10.8) K/uL RBC 3.55 L (3.80-5.20) Mil/uL Hgb 9.9 L (12.0-16.0) g/dL Hct 32.1 L (34.0-47.0) % MCV 90.3 (81.0-99.0) fl MCH 27.9 (27.0-31.0) pg MCHC 30.9 L (33.0-37.0) g/dL RDW 17.0 H (11.5-14.5) % Plt Count 128 L (130-400) K/uL MPV 10.4 (7.2-11.7) fl Neut % (Auto) 85.3 H (50.0-75.0) % Lymph % (Auto) 9.0 L (20.0-40.0) % Carson % (Auto) 5.0 (0.0-10.0) % Eos % (Auto) 0.4 (0.0-4.0) % Baso % (Auto) 0.3 (0.0-2.0) % Neut # 33.2 H (1.8-7.0) K/uL Lymph # 3.5 (1.0-4.3) K/uL Carson # 1.9 H (0.0-0.8) K/uL Eos # 0.2 (0.0-0.7) K/uL Baso # 0.1 (0.0-0.2) K/uL pCO2 (35-45) mm/Hg pO2 (80-100) mm/Hg HCO3 (21-28) mmol/L ABG pH (7.35-7.45) ABG Total CO2 (22-28) mmol/L ABG O2 Saturation (95-98) % ABG Base Excess (-2.0-3.0) mmol/L Juarez Test ABG Potassium (3.6-5.2) mmol/L A-a O2 Difference mm/Hg Glucose (65-105) mg/dL Lactate (0.7-2.1) mmol/L FiO2 % Blood Gas Comments Crit Value Called To Crit Value Called By Crit Value Read Back Blood Gas Notified Time Sodium 143 (132-148) mmol/l Potassium 5.1 H (3.6-5.0) MMOL/L Chloride 113 H (98-107) mmol/L Carbon Dioxide 12 L (22-30) mmol/L Anion Gap 23 H (10-20) BUN 50 H (7-17) mg/dl Creatinine 1.7 H (0.7-1.2) mg/dL Est GFR ( Amer) 37 Est GFR (Non-Af Amer) 31 POC Glucose (mg/dL) 110 (65-110) mg/dL Random Glucose 74 (65-105) mg/dL Lactic Acid (0.7-2.1) MMOL/L Calcium 8.4 (8.4-10.2) mg/dL Total Bilirubin 5.0 H (0.2-1.3) mg/dl AST 1077 H (14-36) U/L ALT 230 H D (9-52) U/L Alkaline Phosphatase 443 H (38-126) U/L Total Protein 5.8 L (6.3-8.2) G/DL Albumin 2.2 L (3.5-5.0) g/dL Globulin 3.6 (2.2-3.9) gm/dL Albumin/Globulin Ratio 0.6 L (1.0-2.1) Arterial Blood Potassium (3.6-5.2) mmol/L 08/04/17 08/04/17 08/04/17 Range/Units 20:00 18:53 18:53 WBC (4.8-10.8) K/uL RBC (3.80-5.20) Mil/uL Hgb (12.0-16.0) g/dL Hct (34.0-47.0) % MCV (81.0-99.0) fl MCH (27.0-31.0) pg MCHC (33.0-37.0) g/dL RDW (11.5-14.5) % Plt Count (130-400) K/uL MPV (7.2-11.7) fl Neut % (Auto) (50.0-75.0) % Lymph % (Auto) (20.0-40.0) % Carson % (Auto) (0.0-10.0) % Eos % (Auto) (0.0-4.0) % Baso % (Auto) (0.0-2.0) % Neut # (1.8-7.0) K/uL Lymph # (1.0-4.3) K/uL Carson # (0.0-0.8) K/uL Eos # (0.0-0.7) K/uL Baso # (0.0-0.2) K/uL pCO2 30 L (35-45) mm/Hg pO2 68 L (80-100) mm/Hg HCO3 14.8 L (21-28) mmol/L ABG pH 7.25 L (7.35-7.45) ABG Total CO2 14.1 L (22-28) mmol/L ABG O2 Saturation 94.3 L (95-98) % ABG Base Excess -12.8 L (-2.0-3.0) mmol/L Juarez Test Yes ABG Potassium 5.0 (3.6-5.2) mmol/L A-a O2 Difference 180.0 mm/Hg Glucose 111 H (65-105) mg/dL Lactate 7.0 H* (0.7-2.1) mmol/L FiO2 40.0 % Blood Gas Comments 5l nc Crit Value Called To Dr vahid doss Crit Value Called By Samy Crit Value Read Back Y Blood Gas Notified Time 2012 Sodium 136.0 142 (132-148) mmol/l Potassium 5.3 H (3.6-5.0) MMOL/L Chloride 108.0 H 109 H (98-107) mmol/L Carbon Dioxide 14 L (22-30) mmol/L Anion Gap 24 H (10-20) BUN 46 H (7-17) mg/dl Creatinine 1.7 H (0.7-1.2) mg/dL Est GFR ( Amer) 37 Est GFR (Non-Af Amer) 31 POC Glucose (mg/dL) (65-110) mg/dL Random Glucose 88 (65-105) mg/dL Lactic Acid 8.0 H* (0.7-2.1) MMOL/L Calcium 9.1 (8.4-10.2) mg/dL Total Bilirubin 4.3 H (0.2-1.3) mg/dl AST 724 H D (14-36) U/L ALT 186 H D (9-52) U/L Alkaline Phosphatase 455 H (38-126) U/L Total Protein 6.0 L (6.3-8.2) G/DL Albumin 2.3 L (3.5-5.0) g/dL Globulin 3.7 (2.2-3.9) gm/dL Albumin/Globulin Ratio 0.6 L (1.0-2.1) Arterial Blood Potassium 5.0 (3.6-5.2) mmol/L 08/04/17 Range/Units 18:53 WBC 33.6 H (4.8-10.8) K/uL RBC 3.73 L (3.80-5.20) Mil/uL Hgb 10.3 L (12.0-16.0) g/dL Hct 33.9 L (34.0-47.0) % MCV 90.9 D (81.0-99.0) fl MCH 27.7 (27.0-31.0) pg MCHC 30.5 L (33.0-37.0) g/dL RDW 16.9 H (11.5-14.5) % Plt Count 124 L D (130-400) K/uL MPV (7.2-11.7) fl Neut % (Auto) (50.0-75.0) % Lymph % (Auto) (20.0-40.0) % Carson % (Auto) (0.0-10.0) % Eos % (Auto) (0.0-4.0) % Baso % (Auto) (0.0-2.0) % Neut # (1.8-7.0) K/uL Lymph # (1.0-4.3) K/uL Carson # (0.0-0.8) K/uL Eos # (0.0-0.7) K/uL Baso # (0.0-0.2) K/uL pCO2 (35-45) mm/Hg pO2 (80-100) mm/Hg HCO3 (21-28) mmol/L ABG pH (7.35-7.45) ABG Total CO2 (22-28) mmol/L ABG O2 Saturation (95-98) % ABG Base Excess (-2.0-3.0) mmol/L Juarez Test ABG Potassium (3.6-5.2) mmol/L A-a O2 Difference mm/Hg Glucose (65-105) mg/dL Lactate (0.7-2.1) mmol/L FiO2 % Blood Gas Comments Crit Value Called To Crit Value Called By Crit Value Read Back Blood Gas Notified Time Sodium (132-148) mmol/l Potassium (3.6-5.0) MMOL/L Chloride (98-107) mmol/L Carbon Dioxide (22-30) mmol/L Anion Gap (10-20) BUN (7-17) mg/dl Creatinine (0.7-1.2) mg/dL Est GFR ( Amer) Est GFR (Non-Af Amer) POC Glucose (mg/dL) (65-110) mg/dL Random Glucose (65-105) mg/dL Lactic Acid (0.7-2.1) MMOL/L Calcium (8.4-10.2) mg/dL Total Bilirubin (0.2-1.3) mg/dl AST (14-36) U/L ALT (9-52) U/L Alkaline Phosphatase (38-126) U/L Total Protein (6.3-8.2) G/DL Albumin (3.5-5.0) g/dL Globulin (2.2-3.9) gm/dL Albumin/Globulin Ratio (1.0-2.1) Arterial Blood Potassium (3.6-5.2) mmol/L Laboratory Results - last 24 hr 08/04/17 08/04/17 08/04/17 18:53 18:53 18:53 WBC 33.6 H RBC 3.73 L Hgb 10.3 L Hct 33.9 L MCV 90.9 D MCH 27.7 MCHC 30.5 L RDW 16.9 H Plt Count 124 L D MPV Neut % (Auto) Lymph % (Auto) Carson % (Auto) Eos % (Auto) Baso % (Auto) Neut # Lymph # Carson # Eos # Baso # pCO2 pO2 HCO3 ABG pH ABG Total CO2 ABG O2 Saturation ABG Base Excess Juarez Test ABG Potassium A-a O2 Difference Glucose Lactate FiO2 Blood Gas Comments Crit Value Called To Crit Value Called By Crit Value Read Back Blood Gas Notified Time Sodium 142 Potassium 5.3 H Chloride 109 H Carbon Dioxide 14 L Anion Gap 24 H BUN 46 H Creatinine 1.7 H Est GFR ( Amer) 37 Est GFR (Non-Af Amer) 31 POC Glucose (mg/dL) Random Glucose 88 Lactic Acid 8.0 H* Calcium 9.1 Total Bilirubin 4.3 H AST 724 H D ALT 186 H D Alkaline Phosphatase 455 H Total Protein 6.0 L Albumin 2.3 L Globulin 3.7 Albumin/Globulin Ratio 0.6 L Arterial Blood Potassium 08/04/17 08/04/17 08/05/17 20:00 20:02 04:30 WBC 38.9 H* RBC 3.55 L Hgb 9.9 L Hct 32.1 L MCV 90.3 MCH 27.9 MCHC 30.9 L RDW 17.0 H Plt Count 128 L MPV 10.4 Neut % (Auto) 85.3 H Lymph % (Auto) 9.0 L Carson % (Auto) 5.0 Eos % (Auto) 0.4 Baso % (Auto) 0.3 Neut # 33.2 H Lymph # 3.5 Carson # 1.9 H Eos # 0.2 Baso # 0.1 pCO2 30 L pO2 68 L HCO3 14.8 L ABG pH 7.25 L ABG Total CO2 14.1 L ABG O2 Saturation 94.3 L ABG Base Excess -12.8 L Juarez Test Yes ABG Potassium 5.0 A-a O2 Difference 180.0 Glucose 111 H Lactate 7.0 H* FiO2 40.0 Blood Gas Comments 5l nc Crit Value Called To Dr vahid doss Crit Value Called By Samy Crit Value Read Back Y Blood Gas Notified Time 2012 Sodium 136.0 Potassium Chloride 108.0 H Carbon Dioxide Anion Gap BUN Creatinine Est GFR ( Amer) Est GFR (Non-Af Amer) POC Glucose (mg/dL) 110 Random Glucose Lactic Acid Calcium Total Bilirubin AST ALT Alkaline Phosphatase Total Protein Albumin Globulin Albumin/Globulin Ratio Arterial Blood Potassium 5.0 08/05/17 04:30 WBC RBC Hgb Hct MCV MCH MCHC RDW Plt Count MPV Neut % (Auto) Lymph % (Auto) Carson % (Auto) Eos % (Auto) Baso % (Auto) Neut # Lymph # Carson # Eos # Baso # pCO2 pO2 HCO3 ABG pH ABG Total CO2 ABG O2 Saturation ABG Base Excess Juarez Test ABG Potassium A-a O2 Difference Glucose Lactate FiO2 Blood Gas Comments Crit Value Called To Crit Value Called By Crit Value Read Back Blood Gas Notified Time Sodium 143 Potassium 5.1 H Chloride 113 H Carbon Dioxide 12 L Anion Gap 23 H BUN 50 H Creatinine 1.7 H Est GFR ( Amer) 37 Est GFR (Non-Af Amer) 31 POC Glucose (mg/dL) Random Glucose 74 Lactic Acid Calcium 8.4 Total Bilirubin 5.0 H AST 1077 H ALT 230 H D Alkaline Phosphatase 443 H Total Protein 5.8 L Albumin 2.2 L Globulin 3.6 Albumin/Globulin Ratio 0.6 L Arterial Blood Potassium Review of Systems - Review of Systems Systems not reviewed;Unavailable: Altered Mental Status Critical Care Progress Note - Ventilator Checklist Head of Bed 30 Degrees: Yes Daily Sedation Vacation: Yes Daily Assessment of Readiness to Wean: Yes Daily Spontaneous Breathing Trial: Yes PUD Prophalyxis: Yes DVT Prophylaxis: Yes Oral Care with Chlorhexidine Gluconate {CHG}: Yes - Vent Settings MODE:: ASSIST CONTROL TIDAL VOLUME:: 450 RESP RATE:: 14 FIO2:: 60 PEEP:: 5 - Extremities/Vascular Does the Patient have a Central Venous Catheter?: Yes Does the Patient need a Central Venous Catheter?: Yes Does the Patient have a Bansal Catheter?: Yes Does the Patient need a Bansal Catheter?: Yes - Nutrition Nutrition: Nutrition Category Date Time Status Dysphagia/Modified Consistency Diet [DIET] Diets 08/02/17 Lunch Active Assessment/Plan (1) Acute respiratory failure with hypoxia Current Visit: Yes Status: Acute Comment: Acute respiratory failure secondary to pneumonia, CHF and septic shock Continue with ICU care for hemodynamic and Respiratory monitoring Monitor Respiratory status, wean to extubate when more hemodynamically stable, more awake, minimal FIO2 and PEEP requirements Daily SAT/SBT Broad spectrum antibiotics Aggressive pulmonary toilet Maintain aspiration precautions GI/DVT PPX (2) Septic shock Current Visit: Yes Status: Acute Comment: Optimize blood pressure, hemodynamic monitoring and maintain end-organ perfusion Monitor fever curve, Tylenol PRN fevers Continue IV hydration with D5 1/2 NS at 125cc/hr; continue to reassess fluid status regularly Continue abx for coverage of presumed hospital and community acquired infection (3) Hyperkalemia Current Visit: Yes Status: Acute (4) Leukocytosis Current Visit: Yes Status: Acute (5) 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 Stress Ulcer prophylaxis with Protonix. #. DVT prophylaxis with SCD #. Code Status: Full code Total critical care time 62 minutes
--- NOTE | 2017-08-05 08:11 | PCM.PROC ---
Procedures Attestation:: I certify that I have explained the specified Operation(s) or Procedure(s), risks, benefits and reasonable alternatives to the Patient and/or other person responsible. The opportunity was given to ask questions and all questions answered - Central Line Placement Right Femoral Triple Lumen Catheter CVP Time Out Performed: Yes Pt. Placed on Pulse Ox Monitor: Yes Central Line Prep: Chlorhexidine-Alcohol Combination Local Anesthesia Used: Lidocaine 1% Ultrasound Used for Placement: Yes Central Line Lumen Inserted: triple Central Line Length: 16 cm Post Procedure: Sutured in Place, Good Blood Return, All Ports Aspirated, Flushed, Capped, Sterile Dressing Applied Secured by: Suture Post procedure dressing: Gauze Post Procedure X-Ray: No Patient Tolerated Procedure: Well, No Complications Immediate Complications: None
--- NOTE | 2017-08-05 08:16 | RAD ---
PROCEDURE: CHEST RADIOGRAPH, 1 VIEW HISTORY: LABOR CUSTODIAN, SOB, TACHY COMPARISON: Frontal chest radiograph 07/26/2017. FINDINGS: LUNGS: Image appears to be captured in expiration. Under the bronchovascular markings appreciate the medial bases bilaterally with linear atelectasis not exclude the medial left base. No definite infiltrate bilaterally. PLEURA: No pneumothorax or pleural fluid seen. CARDIOVASCULAR: Normal. OSSEOUS STRUCTURES: No significant abnormalities. VISUALIZED UPPER ABDOMEN: Normal. OTHER FINDINGS: None. IMPRESSION: No definitive acute infiltrate or pleural effusion. Study is captured at end expiration limiting the evaluation somewhat.
[2017-08-05 08:19] VITALS: O2SAT 89
--- NOTE | 2017-08-05 08:23 | RAD ---
PROCEDURE: CHEST RADIOGRAPH, 1 VIEW HISTORY: CHF COMPARISON: Portable chest 08/04/2017. FINDINGS: LUNGS: Limited airspace disease is questioned at the superior lateral right lung zone with remaining lung heart clear. PLEURA: No pneumothorax or pleural fluid seen. CARDIOVASCULAR: Normal. OSSEOUS STRUCTURES: No significant abnormalities. VISUALIZED UPPER ABDOMEN: Normal. OTHER FINDINGS: None. IMPRESSION: Developing infiltrate question is superior lateral right lung zone. Remaining lung heart clear. No pneumothorax bilaterally. No pleural effusion identified either.
--- NOTE | 2017-08-05 08:26 | PCM.ANES ---
Anesthesia Emergent Intubation - Diagnosis Working Diagnosis:: Septic Shock - Consult Reason for Consult:: Respiratory failure - Intubation Attempts Previous Number of Intubation Attempts:: 1 By:: ICU Physician - Pre-Intubation Vital Signs Blood Pressure: 100/55 Heart Rate: 89 Respiratory Rate: 20 O2 Sat: 89 FIO2: 100 Oxygen Delivery Method: Mask Level Of Consciousness: Sedated Intubation Meds Given: Versed (Versed given by ICU physician after confirmation of his ability to ventilate and after arrival of anesthesia back up) - Airway Management PreOxygenation: 100 (By RT upon arrival) Inhalation: Yes Possible Aspiration: No - Method of Intubation Intubation Method: Oral ETT ETT Size: 8 Lipline@: 20 cm secured by RT Easy: Yes Atramatic: Yes - Intubation Devices Paulino Blade Size Used: 3 - Placement Confirmation Breath Sounds Present & Equal Bilaterally: Yes Gurgling Sounds Not Audible at Epigastrum: Yes Positive EtCO2: Yes Portable CXR: Yes (To be done by ICU team) Recommendations: Ventilator, Chest X Ray, ABG - Post-Intubation Vital Signs Blood Pressure: 88/55 Heart Rate: 100 Respiratory Rate: 12 (ambu bag, vent settings per ICU) O2 Sat: 100 FIO2: 100
[2017-08-05 08:28] LABS: BASO # 0.3 K/uL (0.0-0.2); BASO % 0.8 % (0.0-2.0); EOS # 0.6 K/uL (0.0-0.7); EOS % 1.7 % (0.0-4.0); HEMATOCRIT 26.1 % (34.0-47.0); LYMPH # 3.4 K/uL (1.0-4.3); MEAN CELL VOLUME 93.8 fl (81.0-99.0); MEAN CORPUSCULAR HGB CONC 29.9 g/dL (33.0-37.0); MONO # 1.3 K/uL (0.0-0.8); MONO % 3.4 % (0.0-10.0); NEUT # 32.2 K/uL (1.8-7.0); NEUT % 85.1 % (50.0-75.0); NRBC % 11.5 % (0.0-0.0)
--- NOTE | 2017-08-05 08:33 | RAD ---
PROCEDURE: CHEST RADIOGRAPH, 1 VIEW HISTORY: S/P Intubation COMPARISON: Portable chest 08/05/2017 8:01 a.m.. FINDINGS: Patient now intubated with the tip terminating at the right mainstem bronchus. Retraction 4-5 cm is advised. Further, nasogastric tube is identified placed entering into the left upper quadrant abdomen with the tip off the inferior margins of the image. LUNGS: The infiltrate is again question at the superior right lung zone laterally, overlap with the right scapula. Better definition may be provided by CT as clinically warranted. No additional airspace disease bilaterally. PLEURA: No pneumothorax or pleural fluid seen. CARDIOVASCULAR: Normal. OSSEOUS STRUCTURES: No significant abnormalities. VISUALIZED UPPER ABDOMEN: Normal. OTHER FINDINGS: None. IMPRESSION: 1. Endotracheal tube terminates in the right mainstem bronchus with retraction 4-5 cm advised as discussed above. 2. A small dense infiltrate is again in question at the superior right lung zone laterally overlapping the upper portion of the medial right scapula. CT of chest may be useful for greater characterization. 3. Nasogastric tube placed as discussed above. Findings discussed with Dr. Cabrales with written down reached back verification 08/05/2017 8:29 a.m..
[2017-08-05 08:34] LABS: WHITE BLOOD COUNT 37.8 K/uL (4.8-10.8)
[2017-08-05 08:39] LABS: ALB/GLOB RATIO 0.6 (1.0-2.1); BILIRUBIN,TOTAL 3.8 mg/dl (0.2-1.3); CALCIUM 7.4 mg/dL (8.4-10.2); POTASSIUM 4.9 MMOL/L (3.6-5.0); TOTAL PROTEIN 4.8 G/DL (6.3-8.2)
[2017-08-05] MEDS: Pantoprazole 40 mg EC Tab PO SCH (10:06)
[2017-08-05] MEDS: Megestrol Acetate 40 mg/ml Cup PO SCH (10:06)
[2017-08-05] MEDS ORDERED: Midazolam 2 MG/2 ML VIAL IV ONE (10:07)
[2017-08-05] MEDS: Lidocaine 5% Patch TD SCH (10:28)
[2017-08-05] MEDS: Enoxaparin 40 mg Syringe SC SCH (10:28)
--- NOTE | 2017-08-05 10:32 | CP.PCM.PN ---
Subjective - Date & Time of Evaluation Date of Evaluation: 08/05/17 Time of Evaluation: 10:30 - Subjective Subjective: Patient is intubated. She became very hypotensive over the weekend and had to be transferred to ICU Recent MRI fo the C spine and brain showed metastasis to C 7 and brain. Patent is currently sedated. Noted tachycardia. Objective - Vital Signs/Intake and Output Vital Signs (last 24 hours): Temp Pulse Resp BP Pulse Ox 96.5 F L 89 20 65/35 L 89 L 08/05/17 08:00 08/05/17 08:25 08/05/17 08:25 08/05/17 08:58 08/05/17 08:25 Intake and Output: 08/05/17 08/05/17 06:59 18:59 Intake Total 3010 Output Total 600 Balance 2410 - Medications Medications: Current Medications Aspirin (Ecotrin) 81 mg PO DAILY [facility] Last Admin: 08/05/17 10:05 Dose: Not Given Cyclobenzaprine HCl (Flexeril) 5 mg PO HS [facility] Last Admin: 08/04/17 23:45 Dose: Not Given Cyclobenzaprine HCl (Flexeril) 5 mg PO TID PRN PRN Reason: Muscle spasm Last Admin: 08/03/17 00:32 Dose: 5 mg Docusate Sodium (Colace) 200 mg PO DAILY [facility] Last Admin: 08/05/17 10:05 Dose: Not Given Hydromorphone HCl (Dilaudid) 1 mg IVP Q3 PRN PRN Reason: Pain, severe (8-10) Last Admin: 08/04/17 16:08 Dose: 1 mg Piperacillin Sod/Tazobactam (Sod 3.375 gm/ Sodium Chloride) 100 mls @ 100 mls/ hr IVPB Q8 [facility] Last Admin: 08/05/17 01:06 Dose: 100 mls/hr Vancomycin HCl 500 mg/ Sodium (Chloride) 100 mls @ 100 mls/hr IVPB Q12 [facility] Last Admin: 08/04/17 22:18 Dose: 100 mls/hr Sodium Chloride (Sodium Chloride 0.9%) 1,000 mls @ 0 mls/hr IV .Q0M [facility] PRN Reason: As Directed Stop: 08/05/17 14:34 Sodium Chloride (Sodium Chloride 0.9%) 1,000 mls @ 125 mls/hr IV .Q8H [facility] Stop: 08/05/17 23:45 Last Admin: 08/04/17 23:45 Dose: 125 mls/hr Phenylephrine HCl 10 mg/ (Sodium Chloride) 251 mls @ 30.12 mls/hr IV .Q8H20M [facility]GIO; 20 MCG/MIN PRN Reason: Protocol Vasopressin 100 units/ Sodium (Chloride) 105 mls @ 1.89 mls/hr IV .Q24H [facility]; 0.03 UNITS/MIN PRN Reason: Protocol Last Admin: 08/05/17 08:58 Dose: 0.03 units/min, 1.89 mls/hr Lidocaine (Lidoderm) 1 ea TD DAILY [facility] Last Admin: 08/04/17 08:35 Dose: 1 ea Lorazepam (Ativan) 1 mg IVP Q4 PRN PRN Reason: Agitation Last Admin: 08/05/17 10:13 Dose: 1 mg Megestrol Acetate (Megace) 400 mg PO DAILY [facility] Last Admin: 08/05/17 10:06 Dose: Not Given Naproxen (Naproxen) 500 mg PO DAILY PRN PRN Reason: Pain, moderate (4-7) Last Admin: 07/27/17 13:24 Dose: 500 mg Ondansetron HCl (Zofran Inj) 4 mg IVP Q6 PRN PRN Reason: Nausea/Vomiting Last Admin: 08/01/17 09:02 Dose: 4 mg Pantoprazole Sodium (Protonix Ec Tab) 40 mg PO DAILY [facility] Last Admin: 08/05/17 10:06 Dose: Not Given Sennosides (Senokot Tab) 17.2 mg PO HS [facility] Last Admin: 08/04/17 23:45 Dose: Not Given Simethicone (Mylicon Chew Tab) 80 mg PO TID PRN PRN Reason: Flatulence Last Admin: 08/02/17 12:19 Dose: 80 mg - Labs Labs: 08/05/17 08:10 08/05/17 08:10 PT 15.7 Seconds (9.8-13.1) H 07/31/17 06:30 INR 1.5 (0.9-1.2) H 07/31/17 06:30 APTT 32.5 Seconds (25.6-37.1) 07/31/17 06:30 - Respiratory Exam Respiratory Exam: Decreased Breath Sounds - Cardiovascular Exam Cardiovascular Exam: Tachycardia - GI/Abdominal Exam GI & Abdominal Exam: Normal Bowel Sounds - Neurological Exam Additional comments: sedated Assessment and Plan (1) Acute respiratory failure with hypoxia Status: Acute (2) 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 will inform re status.
--- NOTE | 2017-08-05 10:32 | CARD ---
APPROVED REPORT EKG Measurement Heart [id number] GA 124P83 [id number] <Conclusion> Sinus tachycardia Cannot rule out Anterior infarct, age undetermined Abnormal ECG
--- NOTE | 2017-08-05 10:55 | RAD ---
HISTORY: intubation COMPARISON: Portable chest 08/05/2017 08:23 a.m.. FINDINGS: LUNGS: Endotracheal tube is been adjusted with tip retracted to terminate grossly 1 cm above the coco. Nasogastric tube is unchanged in position as imaged. Patchy density overlapping with the medial upper scapula is again seen the right upper lung zone laterally is suspicious for pneumonia or atelectasis. Continued clinical and radiographic monitor advised. PLEURA: No significant pleural effusion identified, no pneumothorax apparent. CARDIOVASCULAR: Normal. OSSEOUS STRUCTURES: No significant abnormalities. VISUALIZED UPPER ABDOMEN: Normal. OTHER FINDINGS: None. IMPRESSION: Findings remains suspicious for right upper lobe airspace disease bilaterally as discussed above. The endotracheal tube is has been repositioned terminating at the distal trachea approximately 1 cm above the coco. See discussion above.
[2017-08-05 11:58] LABS: METAMYELOCYTE 2 % (0-0); MYELOCYTE 3 % (0-0); NEUTROPHIL 75 % (42-75); NUCLEATED RED BLOOD CELL 18 % (0-0); REACTIVE LYMPHOCYTES 1 % (0-0); TOTAL CELLS COUNTED 100
[2017-08-05] MEDS ORDERED: Dextrose 5%/0.45% NS 1,000 ML IV SCH (12:00)
[2017-08-05 12:15] LABS: GIANT PLATELETS PRESENT; LARGE PLATELETS PRESENT
--- NOTE | 2017-08-05 15:16 | PCM.SEPTIC ---
Sepsis Progress Note - Reassessment Type Date of Evaluation: 08/05/17 Time of Evaluation: 12:00 Reassessment Type: Non-invasive reassessment - Non Invasive Reassessment Were the most recent vital sign reviewed: Yes Vital Sign (Latest): Temp Pulse Resp BP Pulse Ox 98 F 129 H 26 H 84/33 L 89 L 08/05/17 12:00 08/05/17 15:00 08/05/17 15:00 08/05/17 15:00 08/05/17 08:25 Cardiovascular: Yes: Regular Rate, Rhythm, Chest Non Tender. No: Edema, Gallop , JVD, Murmur, Bradycardia, Tachycardia Respiratory: Yes: Decreased Breath Sounds, Rhonchi. No: Accessory Muscle Use, Crackles, Rales, Respiratory Distress Capillary Refill: Normal (Less than 2 sec) Pulses: Normal Radial, Normal Dorsalis Pedis, Normal Posterior Tibialis Skin: Normal Color Was a passive leg raise performed or was a fluid challenge performed within 6 hrs of the initial fluid bolus: Yes Passive Leg Raise Result: Positive Fluid Challenge performed: Yes
[2017-08-05] MEDS ORDERED: Phenylephrine 10 mg/ml Inj ONE (16:12)
--- NOTE | 2017-08-05 16:23 | CP.PCM.CON ---
History of Present Illness - History of Present Illness History of Present Illness: CC Respiratory Failure. Pulmonary consult for a 61 y/o F, Admitted to [facility] on 07/25/17 and on 08/04/17 Pt was transferred to ICU unit due to acute respiratory failure, [employer] was called, Pt was hypotensive and with tachycardia BP 81/62, HR: 136, associated Hx of SOB for 2 weeks, mild cough non productive, not responding to verbal or tactile stimuli, dehydration and was transferred to intensive care unit, was intubated with full vent support. On admission 07/26/17, Pt was c/o of RUQ abdominal pain and SOB x 2 weeks, also was found with severe sepsis and Hepatocellular Carcinoma metastatic to the bone , also with Hx of Hepatitis B. Abdomen U-S showed: Liver Cirrhosis. Heavy smoker for 40 yrs, quit 6 months ago. Aggravated factor: Unable to answer questions 2nd to AMS. Review of Systems - Review of Systems Systems not reviewed;Unavailable: Acuity of Condition, Intubated Past Patient History - Infectious Disease Hx of Infectious Diseases: None - Past Medical History & Family History Past Medical History?: Yes Pertinent Family History: Unknown - Past Social History Smoking Status: Former Smoker Chewing Tobacco Use: No Cigar Use: No Alcohol: Social Drugs: Denies Home Situation {Lives}: With Family - CARDIAC Hx Cardiac Disorders: Yes Hx Hypertension: Yes - PULMONARY Hx Respiratory Disorders: Yes Hx Bronchitis: Yes - NEUROLOGICAL Hx Neurological Disorder: No - HEENT Hx HEENT Problems: No - RENAL Hx Chronic Kidney Disease: No - ENDOCRINE/METABOLIC Hx Endocrine Disorders: No - HEMATOLOGICAL/ONCOLOGICAL Hx Blood Disorders: Yes Hx Hepatitis B: Yes (28 yrs ago) - INTEGUMENTARY Hx Dermatological Problems: No - MUSCULOSKELETAL/RHEUMATOLOGICAL Hx Musculoskeletal Disorders: No Hx Falls: No - GASTROINTESTINAL Hx Gastrointestinal Disorders: No - GENITOURINARY/GYNECOLOGICAL Hx Genitourinary Disorders: No - PSYCHIATRIC Hx Psychophysiologic Disorder: No Hx Substance Use: No - SURGICAL HISTORY Hx Surgeries: Yes Other/Comment: gum surgery 28 yrs ago - ANESTHESIA Hx Anesthesia: Yes Hx Anesthesia Reactions: No Hx Malignant Hyperthermia: No Has any member of the family had a problem w/ anesthesia?: No Meds Allergies/Adverse Reactions: Allergies Allergy/AdvReac Type Severity Reaction Status Date / Time No Known Allergies Allergy Verified 07/26/17 11:03 - Medications Medications: Current Medications Aspirin (Ecotrin) 81 mg PO DAILY [facility] Last Admin: 08/05/17 10:05 Dose: Not Given Cyclobenzaprine HCl (Flexeril) 5 mg PO HS [facility] Last Admin: 08/04/17 23:45 Dose: Not Given Cyclobenzaprine HCl (Flexeril) 5 mg PO TID PRN PRN Reason: Muscle spasm Last Admin: 08/03/17 00:32 Dose: 5 mg Docusate Sodium (Colace) 200 mg PO DAILY [facility] Last Admin: 08/05/17 10:05 Dose: Not Given Piperacillin Sod/Tazobactam (Sod 3.375 gm/ Sodium Chloride) 100 mls @ 100 mls/ hr IVPB Q8 [facility] Last Admin: 08/05/17 10:41 Dose: 100 mls/hr Vancomycin HCl 500 mg/ Sodium (Chloride) 100 mls @ 100 mls/hr IVPB Q12 [facility] Last Admin: 08/05/17 10:38 Dose: 100 mls/hr Sodium Chloride (Sodium Chloride 0.9%) 1,000 mls @ 125 mls/hr IV .Q8H [facility] Stop: 08/05/17 23:45 Last Admin: 08/04/17 23:45 Dose: 125 mls/hr Phenylephrine HCl 10 mg/ (Sodium Chloride) 251 mls @ 30.12 mls/hr IV .Q8H20M [facility]; 20 MCG/MIN PRN Reason: Protocol Last Admin: 08/05/17 16:14 Dose: 110 mcg/min, 165.66 mls/hr Vasopressin 100 units/ Sodium (Chloride) 105 mls @ 1.89 mls/hr IV .Q24H [facility]; 0.03 UNITS/MIN PRN Reason: Protocol Last Admin: 08/05/17 08:58 Dose: 0.03 units/min, 1.89 mls/hr Dextrose/Sodium Chloride (Dextrose 5%/0.45% Ns 1000 Ml) 1,000 mls @ 125 mls/hr IV .Q8H [facility] Stop: 08/06/17 11:48 Last Admin: 08/05/17 11:50 Dose: 125 mls/hr Lidocaine (Lidoderm) 1 ea TD DAILY [facility] Last Admin: 08/05/17 10:28 Dose: Not Given Lorazepam (Ativan) 1 mg IVP Q4 PRN PRN Reason: Agitation Last Admin: 08/05/17 10:13 Dose: 1 mg Megestrol Acetate (Megace) 400 mg PO DAILY [facility] Last Admin: 08/05/17 10:06 Dose: Not Given Naproxen (Naproxen) 500 mg PO DAILY PRN PRN Reason: Pain, moderate (4-7) Last Admin: 07/27/17 13:24 Dose: 500 mg Ondansetron HCl (Zofran Inj) 4 mg IVP Q6 PRN PRN Reason: Nausea/Vomiting Last Admin: 08/01/17 09:02 Dose: 4 mg Pantoprazole Sodium (Protonix Ec Tab) 40 mg PO DAILY [facility] Last Admin: 08/05/17 10:06 Dose: Not Given Sennosides (Senokot Tab) 17.2 mg PO HS [facility] Last Admin: 08/04/17 23:45 Dose: Not Given Simethicone (Mylicon Chew Tab) 80 mg PO TID PRN PRN Reason: Flatulence Last Admin: 08/02/17 12:19 Dose: 80 mg Physical Exam - Constitutional Appears: Chronically Ill - Head Exam Head Exam: NORMAL INSPECTION - Eye Exam Additional comments: Pupils sluggish reactive to light. Corneal reflex positive. - ENT Exam Additional comments: Intubated - Neck Exam Neck exam: Positive for: Normal Inspection - Respiratory Exam Respiratory Exam: Decreased Breath Sounds (at bases), Rhonchi - Cardiovascular Exam Cardiovascular Exam: Tachycardia - GI/Abdominal Exam GI & Abdominal Exam: Normal Bowel Sounds, Soft - Extremities Exam Additional comments: Edema - Neurological Exam Additional comments: Intubated, sedated, unresponsive to verbal or tactile stimuli. - Psychiatric Exam Additional comments: Sedated - Skin Additional comments: Cold upper and lower extremities. Results - Vital Signs Recent Vital Signs: Last Vital Signs Temp 98 F 08/05/17 12:00 Pulse 129 H 08/05/17 15:00 Resp 26 H 08/05/17 15:00 BP 84/33 L 08/05/17 15:00 Pulse Ox 89 L 08/05/17 08:25 reviewed Bobby - Labs Result Diagrams: 08/05/17 08:10 08/05/17 08:10 Labs: Laboratory Results - last 24 hr 08/04/17 08/04/17 08/04/17 18:53 18:53 18:53 WBC 33.6 H RBC 3.73 L Hgb 10.3 L Hct 33.9 L MCV 90.9 D MCH 27.7 MCHC 30.5 L RDW 16.9 H Plt Count 124 L D MPV Neut % (Auto) Lymph % (Auto) [place] % (Auto) Eos % (Auto) Baso % (Auto) Neut # Lymph # [place] # Eos # Baso # Neutrophils % (Manual) Band Neutrophils % Lymphocytes % (Manual) Reactive Lymphs % Monocytes % (Manual) Metamyelocytes % Myelocytes % Nucleated RBC % Toxic Granulation Platelet Estimate Large Platelets Giant Platelets Hypochromasia (manual) Anisocytosis (manual) pCO2 pO2 HCO3 ABG pH ABG Total CO2 ABG O2 Saturation ABG Base Excess [place] Test ABG Potassium A-a O2 Difference Glucose Lactate FiO2 Blood Gas Comments Crit Value Called To Crit Value Called By Crit Value Read Back Blood Gas Notified Time Sodium 142 Potassium 5.3 H Chloride 109 H Carbon Dioxide 14 L Anion Gap 24 H BUN 46 H Creatinine 1.7 H Est GFR ( Amer) 37 Est GFR (Non-Af Amer) 31 POC Glucose (mg/dL) Random Glucose 88 Lactic Acid 8.0 H* Calcium 9.1 Total Bilirubin 4.3 H AST 724 H D ALT 186 H D Alkaline Phosphatase 455 H Total Protein 6.0 L Albumin 2.3 L Globulin 3.7 Albumin/Globulin Ratio 0.6 L Arterial Blood Potassium 08/04/17 08/04/17 08/05/17 20:00 20:02 04:30 WBC 38.9 H* RBC 3.55 L Hgb 9.9 L Hct 32.1 L MCV 90.3 MCH 27.9 MCHC 30.9 L RDW 17.0 H Plt Count 128 L MPV 10.4 Neut % (Auto) 85.3 H Lymph % (Auto) 9.0 L [place] % (Auto) 5.0 Eos % (Auto) 0.4 Baso % (Auto) 0.3 Neut # 33.2 H Lymph # 3.5 [place] # 1.9 H Eos # 0.2 Baso # 0.1 Neutrophils % (Manual) 75 Band Neutrophils % 4 H Lymphocytes % (Manual) 11 L Reactive Lymphs % 1 H Monocytes % (Manual) 4 Metamyelocytes % 2 H Myelocytes % 3 H Nucleated RBC % 18 H Toxic Granulation Present Platelet Estimate Slightly decreased L Large Platelets Present Giant Platelets Present Hypochromasia (manual) Slight Anisocytosis (manual) Slight pCO2 30 L pO2 68 L HCO3 14.8 L ABG pH 7.25 L ABG Total CO2 14.1 L ABG O2 Saturation 94.3 L ABG Base Excess -12.8 L [place] Test Yes ABG Potassium 5.0 A-a O2 Difference 180.0 Glucose 111 H Lactate 7.0 H* FiO2 40.0 Blood Gas Comments 5l nc Crit Value Called To Dr vahid doss Crit Value Called By Samy Crit Value Read Back Y Blood Gas Notified Time 2012 Sodium 136.0 Potassium Chloride 108.0 H Carbon Dioxide Anion Gap BUN Creatinine Est GFR ( Amer) Est GFR (Non-Af Amer) POC Glucose (mg/dL) 110 Random Glucose Lactic Acid Calcium Total Bilirubin AST ALT Alkaline Phosphatase Total Protein Albumin Globulin Albumin/Globulin Ratio Arterial Blood Potassium 5.0 08/05/17 08/05/17 08/05/17 04:30 08:10 08:10 WBC 37.8 H* RBC 2.79 L Hgb 7.8 L D Hct 26.1 L MCV 93.8 D MCH 28.0 MCHC 29.9 L RDW 17.0 H Plt Count 104 L D MPV 10.0 Neut % (Auto) 85.1 H Lymph % (Auto) 9.0 L [place] % (Auto) 3.4 Eos % (Auto) 1.7 Baso % (Auto) 0.8 Neut # 32.2 H Lymph # 3.4 [place] # 1.3 H Eos # 0.6 Baso # 0.3 H Neutrophils % (Manual) Band Neutrophils % Lymphocytes % (Manual) Reactive Lymphs % Monocytes % (Manual) Metamyelocytes % Myelocytes % Nucleated RBC % Toxic Granulation Platelet Estimate Large Platelets Giant Platelets Hypochromasia (manual) Anisocytosis (manual) pCO2 pO2 HCO3 ABG pH ABG Total CO2 ABG O2 Saturation ABG Base Excess [place] Test ABG Potassium A-a O2 Difference Glucose Lactate FiO2 Blood Gas Comments Crit Value Called To Crit Value Called By Crit Value Read Back Blood Gas Notified Time Sodium 143 Potassium 5.1 H Chloride 113 H Carbon Dioxide 12 L Anion Gap 23 H BUN 50 H Creatinine 1.7 H Est GFR ( Amer) 37 Est GFR (Non-Af Amer) 31 POC Glucose (mg/dL) Random Glucose 74 Lactic Acid 6.9 H* Calcium 8.4 Total Bilirubin 5.0 H AST 1077 H ALT 230 H D Alkaline Phosphatase 443 H Total Protein 5.8 L Albumin 2.2 L Globulin 3.6 Albumin/Globulin Ratio 0.6 L Arterial Blood Potassium 08/05/17 08:10 WBC RBC Hgb Hct MCV MCH MCHC RDW Plt Count MPV Neut % (Auto) Lymph % (Auto) [place] % (Auto) Eos % (Auto) Baso % (Auto) Neut # Lymph # [place] # Eos # Baso # Neutrophils % (Manual) Band Neutrophils % Lymphocytes % (Manual) Reactive Lymphs % Monocytes % (Manual) Metamyelocytes % Myelocytes % Nucleated RBC % Toxic Granulation Platelet Estimate Large Platelets Giant Platelets Hypochromasia (manual) Anisocytosis (manual) pCO2 pO2 HCO3 ABG pH ABG Total CO2 ABG O2 Saturation ABG Base Excess [place] Test ABG Potassium A-a O2 Difference Glucose Lactate FiO2 Blood Gas Comments Crit Value Called To Crit Value Called By Crit Value Read Back Blood Gas Notified Time Sodium 145 Potassium 4.9 Chloride 117 H Carbon Dioxide 13 L Anion Gap 20 BUN 47 H Creatinine 1.7 H Est GFR ( Amer) 37 Est GFR (Non-Af Amer) 31 POC Glucose (mg/dL) Random Glucose 61 L Lactic Acid Calcium 7.4 L Total Bilirubin 3.8 H AST 961 H ALT 204 H Alkaline Phosphatase 347 H D Total Protein 4.8 L Albumin 1.8 L Globulin 3.0 Albumin/Globulin Ratio 0.6 L Arterial Blood Potassium reviewed J.P. - EKG Data EKG comments: reviewed J.P. - Impressions Impression: Cervical Spine MRI, Face Ray and Interventional procedure, all reviewed J.P. 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 ICU time: 60 minutes. - Date & Time Date: 08/05/17 Time: 11:00
--- NOTE | 2017-08-06 00:29 | CP.PCM.PRO ---
Pronouncement of Note - Clinical Findings Physical Exam: No Response Verbal/Painful Stimuli, Absent Peripheral Pulses{ Carotid & Femoral}, Absent Heart & Breath Sounds, No Pupillary Light Reflex, No Corneal Reflex, Pupils Fixed & Dilated, Absence of Vital Signs - Pronouncement Time Time of Pronouncement of : 23:31 Additional Comments: EDWIN DEONNA WAS CALLED 23:01. PT FOUND IN [place]. ACLS PROTOCOL INITIATED AND FOLLOWED FOR APPX 30 MINUTES. NO ROSC ACHIEVED AT ANY TIME. PATIENT [id number]. NOTIFIED AND DISCUSSED WITH PATIENT AND SON. - Notifications Pronouncement Notifications: Family Notified Boat Carpenter Notified: No - Autopsy Autopsy Requested: No [place]: [id number] Additional Comments: EDWIN DEONNA WAS CALLED 23:01. PT FOUND IN [place]. ACLS PROTOCOL INITIATED AND FOLLOWED FOR APPX 30 MINUTES. NO ROSC ACHIEVED AT ANY TIME. PATIENT 2331. NOTIFIED AND DISCUSSED WITH PATIENT AND SON.
[2017-08-06] MEDS ORDERED: EPINEPHrine 1 mg/ml (1:1000) Inj IV ONE (02:30)
[2017-08-06 02:57] VITALS: TEMP 99.3
[2017-08-06 03:05] VITALS: BP 132/22; PULSE 105; RESP 22
--- NOTE | 2017-08-06 07:36 | CP.PCM.PN ---
Subjective - Date & Time of Evaluation Date of Evaluation: 08/06/17 Time of Evaluation: 07:30 - Subjective Subjective: Ms Barfield was supposed to be evaluated by our dept yesterday, however my covering physician was informed that she was unstable and could not be transferred for evaluation for her bone metastases. This morning, we were called to inform us that she in the ICU/CCU. Objective - Vital Signs/Intake and Output Vital Signs (last 24 hours): Temp Pulse Resp BP Pulse Ox 99.3 F 105 H 22 132/22 L 89 L 08/05/17 20:00 08/05/17 22:00 08/05/17 22:00 08/05/17 22:00 08/05/17 08:25 Intake and Output: 08/06/17 08/06/17 06:59 18:59 Intake Total 1601 Balance 1601 - Labs Labs: 08/05/17 08:10 08/05/17 08:10 PT 15.7 Seconds (9.8-13.1) H 07/31/17 06:30 INR 1.5 (0.9-1.2) H 07/31/17 06:30 APTT 32.5 Seconds (25.6-37.1) 07/31/17 06:30
--- NOTE | 2017-08-06 12:51 | CARD ---
APPROVED REPORT EKG Measurement Heart Tmus471AMIM [place] 132P80 [id number] <Conclusion> Sinus tachycardia Low voltage QRS Borderline ECG
--- NOTE | 2017-08-08 10:11 | PQF SEPSIS ---
Dr. Cardozo pt had a diagnosis of sepsis and septic shock. Was sepsis and or septic shock present on admission? This form is a permanent part of the medical record Clarification of your documentation is requested to better reflect the severity of illness and intensity of treatment of your patient. Indicators present [] Temp < 96.8 or > 100.4 [] WBC count > 12,000/mm3 or <000/mm3 or 10% immature neutrophils [] Heart Rate > 90 [] Respiratory Rate > 20 [] Fever or hypothermia [] Chills [] Positive blood cultures [x] Hypotension [x] Metabolic acidosis (Elevated lactate level, anion gap or reduced blood pH) [x] Acute confusion /Altered Mental Status [x] Shock [] Other: [] Location in the medical record that reflects the above clinical findings: [] Treatment Provided: [] PHYSICIAN'S RESPONSE Based on your medical judgment of the clinical indicators outlined above, are you treating this patient for a known or suspected: [] Sepsis / Septicemia Please specify organism if known [] [] SIRS (Systemic Inflammatory Response Syndrome) [] Severe Sepsis (Sepsis with Associated Organ Dysfunction) [] Fever of Unknown Origin [] Other, please indicate: [] [] If Unable to Determine, please check the box, sign and date. Present On Admission (POA) Indicator: [] Present at the time of admission [] Not present at the time of admission [] Clinically Undetermined In responding to this query, please exercise your independent professional judgment. The fact that a question is asked does not imply that any particular answer is desired or expected. Thank you for your clarification on this documentation. If you have any questions please call:[ ] * Thank you, [ ]Katie Longoria pipe insulator helper KOLBY
== END 2017-08-05 23:31 | DRG 435 ==
LOC: H.ER 10:54 → H.ERHOLD 14:12 → H.TEL 16:36 → H.ICU/CCU 08-04 20:40
PROVIDERS: ADMIT Family Medicine; ATTEND Family Medicine
PROC: 0FB23ZX Excision of Left Lobe Liver, Percutaneous Approach, Diagnostic (ICD-10-PCS; principal; 2017-07-30 14:00)
PROC: 5A1935Z Respiratory Ventilation, Less than 24 Consecutive Hours (ICD-10-PCS; 2017-08-05)
PROC: 06HM33Z Insertion of Infusion Device into Right Femoral Vein, Percutaneous Approach (ICD-10-PCS; 2017-08-05)
PROC: 0BH17EZ Insertion of Endotracheal Airway into Trachea, Via Natural or Artificial Opening (ICD-10-PCS; 2017-08-05)
DX: C22.0 Liver cell carcinoma (principal); I63.511 Cerebral infarction due to unspecified occlusion or stenosis of right middle cerebral artery; J96.01 Acute respiratory failure with hypoxia; G92 Toxic encephalopathy; J18.9 Pneumonia, unspecified organism; N17.9 Acute kidney failure, unspecified; D68.9 Coagulation defect, unspecified; C79.31 Secondary malignant neoplasm of brain; C79.51 Secondary malignant neoplasm of bone; E87.2 Acidosis; B18.1 Chronic viral hepatitis B without delta-agent; E87.5 Hyperkalemia; G89.3 Neoplasm related pain (acute) (chronic); D63.8 Anemia in other chronic diseases classified elsewhere; I10 Essential (primary) hypertension; Z87.891 Personal history of nicotine dependence; E86.0 Dehydration